=== PATIENT | male | born 1970 | race Caucasian/White ===

== ENCOUNTER → 2017-12-29 09:51 | Outpatient (CLI) | payer OTHER, SELFPAY ==
[2017-12-29 12:33] LABS: Absolute Lymphocyte Count 1.46 X10^3/ul (0.83-4.51); Absolute Neutrophil Count 1.7 X10^3/uL (2.0-7.7); Basophil# 0.05 X10^3/uL; Basophil% 1.3 % (0-1); Eosinophil# 0.08 X10^3/uL; Eosinophils% 2.1 % (0-5); Hematocrit 42.7 % (40-54); Hemoglobin 15.4 g/dl (13.0-16.5); Lymphocyte # 1.46 X10^3/ul (4.0); Mean Corp Hgb Conc 36.1 g/gl (32-36); Mean Corpuscular Hgb 33.8 pg (27.0-32.0); Mean Corpuscular Volume 93.6 fL (80-94); Mean Platelet Vol. 10.2 fl (6.2-12.0); Monocyte# 0.56 X10^3/uL; Monocyte% 14.6 % (0-10); Neutrophil # 1.68 X10^3/uL (2.7-7.7); Neutrophil % 43.7 % (47-70); Platelet Count 149 K/mm3 (150-450); RBC Distribution Width CV 11.5 % (11.6-14.6); RBC Distribution Width SD 38.9 fl (35.1-43.9); Red Blood Count 4.56 M/mm3 (4.6-6.2); White Blood Count 3.8 K/mm3 (4.4-11.0)
[2017-12-29 12:38] LABS: POSITIVE COUNT NO; POSITIVE DIFFERENTIAL NO; POSITIVE MORPHOLOGY NO
[2017-12-29 12:56] LABS: Hemoglobin A1c 7.2 % (4.2-6.3)
[2017-12-29 13:09] LABS: ALB/GLOB Ratio 0.7 RATIO (0.9-2.4); AST(SGOT) 132 U/L (15-37); Alanine Aminotransfer ALT/SGPT 156 U/L (16-61); Albumin, Serum 3.6 g/dL (3.2-5.0); Alkaline Phosphatase 79 U/L (45-117); Anion Gap 10 (5-15); BUN 8 mg/dL (7-18); BUN/Creat Ratio 9.5 RATIO (10-20); Calcium,Total 8.2 mg/dL (8.5-10.1); Chloride 91 mmol/L (98-107); Cholesterol 245 mg/dL (200); Creatinine, Serum 0.84 mg/dL (0.70-1.30); EST Glomerular Filtration Rate 102 mL/min (>60); Est Glom Filt Rate - Afr Amer 124 mL/min (>60); Globulin 5.1 g/dL (2.2-4.2); Glucose 196 mg/dL (74-106); High Density Lipoprotein 36 mg/dL; Potassium 3.5 mmol/L (3.5-5.1); Protein, Total 8.7 g/dL (6.4-8.2); Sodium Level 129 mmol/L (136-145); Triglycerides 427 mg/dL
== END ==
PROVIDERS: Family Provider Family Medicine; PCP Family Medicine; Visit Provider Family Medicine
DX: Z00.01 Encounter for general adult medical examination with abnormal findings (principal); K75.9 Inflammatory liver disease, unspecified; I10 Essential (primary) hypertension; R73.9 Hyperglycemia, unspecified
CPT/HCPCS: 36415; 80053; 80061; 83036; 85025

== ENCOUNTER → 2019-12-07 | Outpatient (CLI) | payer OTHER, SELFPAY ==
[2019-12-07 12:00] LABS: Absolute Lymphocyte Count 1.39 X10^3/uL (0.83-4.51); Absolute Neutrophil Count 2.6 X10^3/uL (2.0-7.7); Basophil# 0.06 X10^3/uL; Basophil% 1.3 % (0-1); Eosinophil# 0.06 X10^3/uL; Eosinophils% 1.3 % (0-5); Hematocrit 47.6 % (40-54); Hemoglobin 15.9 g/dL (13.0-16.5); Lymphocyte # 1.39 X10^3/ul (4.0); Mean Corp Hgb Conc 33.4 g/dL (32-36); Mean Corpuscular Hgb 31.4 pg (27.0-32.0); Mean Corpuscular Volume 93.9 fL (80-94); Mean Platelet Vol. 10.4 fl (6.2-12.0); Monocyte# 0.66 X10^3/uL; Monocyte% 13.8 % (0-10); NRBC Flagged by Analyzer 0 % (0-5); Neutrophil # 2.61 X10^3/uL (2.7-7.7); Neutrophil % 54.4 % (47-70); Platelet Count 122 K/mm3 (150-450); RBC Distribution Width CV 11.9 % (11.6-14.6); RBC Distribution Width SD 40.6 fl (35.1-43.9); Red Blood Count 5.07 M/mm3 (4.6-6.2); White Blood Count 4.8 K/mm3 (4.4-11.0)
[2019-12-07 12:01] LABS: International Normalized Ratio 1.3; Prothrombin Time (Protime)PT. 15.9 SECONDS (11.7-14.9)
[2019-12-07 12:15] LABS: Hemoglobin A1c 8.5 % (4.2-6.3)
[2019-12-07 12:24] LABS: ALB/GLOB Ratio 0.6 RATIO (0.9-2.4); AST(SGOT) 69 U/L (15-37); Alanine Aminotransfer ALT/SGPT 114 U/L (16-61); Albumin, Serum 3.6 g/dL (3.2-5.0); Alkaline Phosphatase 90 U/L (45-117); Anion Gap 8 (5-15); BUN 11 mg/dL (7-18); BUN/Creat Ratio 11.4 RATIO (10-20); Calcium,Total 9.2 mg/dL (8.5-10.1); Chloride 94 mmol/L (98-107); Cholesterol 259 mg/dL (200); Creatinine, Serum 0.96 mg/dL (0.70-1.30); EST Glomerular Filtration Rate 87 mL/min (>60); Est Glom Filt Rate - Afr Amer 105 mL/min (>60); Globulin 5.8 g/dL (2.2-4.2); Glucose 203 mg/dL (74-106); High Density Lipoprotein 53 mg/dL; Potassium 3.7 mmol/L (3.5-5.1); Protein, Total 9.4 g/dL (6.4-8.2); Sodium Level 130 mmol/L (136-145); Triglycerides 178 mg/dL; Very Low Density Lipoprotein 36 mg/dL (5-40)
[2019-12-07 12:32] LABS: Microalbumin:Creatinine Ratio 110.7 mg/g CRE (<30 mg/g CRE)
[2019-12-10 09:17] LABS: Vitamin B12 684 pg/mL (211-911)
== END | disposition home or self-care (01) ==
LOC: LAB.FUTURE 10:29
PROVIDERS: PCP Family Medicine; Referring Provider Family Medicine; Visit Provider Family Medicine
DX: Z00.00 Encounter for general adult medical examination without abnormal findings (principal); E11.9 Type 2 diabetes mellitus without complications; K75.9 Inflammatory liver disease, unspecified; F10.20 Alcohol dependence, uncomplicated
CPT/HCPCS: 36415; 80053; 80061; 82043; 82570; 82607; 82746; 83036; 85025; 85610

== ENCOUNTER 2022-05-01 22:10 | Inpatient (IN) | payer OTHER, SELFPAY ==
[2022-05-01 22:12] VITALS: BP 116/63; PULSE 92; RESP 16; TEMP 36.6; O2SAT 98; BMI 27.3
[2022-05-01] MEDS: 0.9% Normal Saline 1,000 ML 999 ML IV (23:07)
[2022-05-01] MEDS: Ondansetron 4 MG/2 ML Vial IV (23:07)
--- NOTE | 2022-05-01 23:07 | CT_ITS ---
EXAM: CT ABDOMEN AND PELVIS WITH INTRAVENOUS CONTRAST CLINICAL INDICATION: Hematemesis / ? Esophageal varices TECHNIQUE: Helically acquired images were obtained of the abdomen and pelvis with intravenous contrast. This CT exam was performed using one or more of the following dose reduction techniques: automated exposure control, adjustment of the mA and/or kV according to patient size, and/or use of iterative reconstruction technique. This report was created using [employer] report generation technology. CONTRAST: 100 cc of Isovue 300 IV. RADIATION DOSE: CTDIvol = 17.38 mGy, DLP = 1005.03 mGy-cm. COMPARISON: None. FINDINGS: LOWER THORAX: Unremarkable. Lung bases are clear. No cardiomegaly. No significant pericardial effusion. ABDOMEN: LIVER: Mildly nodular liver contour suggestive of cirrhosis. GALLBLADDER AND BILE DUCTS: Cholelithiasis. No gallbladder distention or wall edema. No intra- or extrahepatic biliary ductal dilation. PANCREAS: Unremarkable. No focal cystic or solid mass. SPLEEN: Unremarkable. Normal size without focal cystic or solid mass. ADRENALS: Unremarkable. No nodules. KIDNEYS AND URETERS: Unremarkable. Normal renal size and position. No hydronephrosis. STOMACH AND BOWEL: Numerous sigmoid diverticuli without diverticulitis. No stomach or bowel distention. PELVIS: APPENDIX: Normal appendix. BLADDER: Unremarkable. REPRODUCTIVE: Unremarkable as visualized. No mass. ABDOMEN and PELVIS: INTRAPERITONEAL SPACE: Slight ascites. No free air. BONES/JOINTS: Unremarkable. No suspicious lytic or blastic abnormality. SOFT TISSUES: Unremarkable. No discrete abdominal or pelvic wall hernia. VASCULATURE: There may be a few small varices in the gastrohepatic ligament. Abdominal aorta is non-dilated. LYMPH NODES: Borderline sized gastrohepatic and paraesophageal lymph nodes. CT/Abdomen/Pelvis W IV Cont ONLY IMPRESSION: 1. There may be a few small varices in the gastrohepatic ligament. No significant esophageal varices. 2. Mildly nodular liver contour suggestive of cirrhosis. 3. Cholelithiasis. 4. Slight ascites. 5. Numerous sigmoid diverticuli without diverticulitis. 6. Borderline sized gastrohepatic and paraesophageal lymph nodes. Electronically Signed: Aldair Begum MD at 0:33 EDT ,
--- NOTE | 2022-05-01 23:08 | EX.ED.DYSGE1 ---
HPI History of Present Illness Chief Complaint: Nausea/Vomiting Narrative Narrative: Patient is a 52-year-old male who reports a past medical history of hypertension. He also states he drinks 12 beers daily. He states today he was feeling perfectly normal and around 830 had a bout of vomiting. He states that it was bloody in nature. He states he takes a baby aspirin but otherwise denies any blood thinner use or history of bleeding disorder. He states roughly 2030 minutes later he had 2 more bouts of vomiting which also appear bloody in nature. He states just prior to coming to the ER he did have a loose stool which was dark in color. He denies any history of intestinal disorder or known esophageal varices. He denies any known sick contact. However with his bouts of vomiting and concern that it is bloody in nature presents for evaluation [facility] Medical History (Updated 05/02/22 @ 01:[address] Spike Morales DO) Alcohol abuse Diabetes mellitus, type 2 History of venous thromboembolism HTN (hypertension) Home Medications aspirin 81 mg tablet,delayed release 81 mg PO DAILY 05/01/22 [History Last Taken Unknown] metoprolol tartrate 50 mg tablet 50 tab PO BID 05/01/22 [History Last Taken Unknown] Allergy/AdvReac Type Severity Reaction Status Date / Time No Known Allergies Allergy Verified 05/01/22 22:14 Family History (Updated 05/02/22 @ 00:[address] Rody Zurita MD) Mother Cancer CLL Father Colon cancer Diagnosed age 49, passed ~ 10 years later. Surgical History (Updated 05/02/22 @ 00:[address] Rody Zurita MD) S/P tonsillectomy and adenoidectomy Social History (Updated 05/02/22 @ 00:[address] Rody Zurita MD) household members: none Smoking Status: Never smoker alcohol intake: current alcohol intake frequency: 3 or more drinks per day details: several years-decades intake, current 12 beers/day. substance use type: does not use ROS ROS ED Constitutional Constitutional ED: Denies chills or fever(s) ENT ENT ED: Denies sore throat Cardiovascular Cardiovascular: Denies chest pain or palpitations Respiratory/Chest Respiratory/Chest: Denies cough or dyspnea Gastrointestinal Gastrointestinal: Reports melena, nausea and vomiting; Denies abdominal pain or diarrhea Genitourinary Genitourinary ED: Denies dysuria Musculoskeletal Musculoskeletal: Denies myalgias Integumentary Denies rash Neurologic Neurologic: Denies headache(s) Hematologic/Lymphatic Hematologic/Lymphatic: Denies easy bleeding or easy bruising EXAM Physical Exam Const Vital Signs: 05/01/22 22:12 Temperature 97.8 F Temperature Source Temporal Pulse Rate 92 Respiratory Rate 16 Blood Pressure 116/63 Blood Pressure Mean 80 Pulse Ox 98 Oxygen Delivery Method Room Air Positive well nourished and well developed General Appearance ED: well developed HEENT Reports moist mucous membranes HEENT Narrative: No dried blood or active bleeding noted in the posterior pharynx Eyes PERRL and EOMs intact bilaterally Eyes Narrative: Slight scleral icterus noted Neck supple Neck Narrative: No crepitance palpated Resp normal respiratory effort and clear to auscultation bilaterally Cardio regular rate and regular rhythm Rate: other Other Details: Radial pulses are plus 2 out of 4 bilaterally are equal and symmetric GI normal to inspection, nondistended, normoactive bowel sounds, non-tender and non-distended GI Narrative: No voluntary guarding or rigidity no pulsatile mass or fluid wave Auscultation: normoactive bowel sounds Palpation: soft Narrative: Rectal exam shows no external fissure or hemorrhoid. Rectal tone is normal and stool is melanotic in color Extremity normal to inspection Neuro oriented x3 and CN's II-XII intact bilaterally Sensorium / Orientation: alert Psych mental status grossly normal Skin no rashes or lesions noted General Skin Exam: Negative for jaundice MDM MDM MDM Narrative Medical decision making narrative: Patient presented to the ER with stable vitals. He reported that he had hematemesis today as well as some dark discolored stool. He denies any history of this or bleeding disorder but he does drink reportedly 12 beers a day which increases risk for possible esophageal varices or alcohol gastritis. Basic blood work was ordered and it shows a hemoglobin of 7.3. The previous value have from 2 years ago was normal at approximately 16. The patient's stool is melanotic in color but the lab reported it was negative for blood. However based on his physical exam and laboratory derangements I feel this is a false negative. I do feel patient is most likely still having upper GI bleeding. Therefore he was given a Protonix bolus and as well as a Protonix drip. With concern for esophageal varices based on his alcohol use and the reported hematemesis he was also started on octreotide. At this time he is hemodynamically stable but with history and exam concerning for active GI bleed he will be given a unit of blood and kept in the hospital for further evaluation. Lab Data Attestation: I reviewed the patient's lab results. Labs: Laboratory Results - last 24 hr 05/01/22 05/01/22 05/01/22 23:10 23:10 23:10 WBC 3.4 L RBC 3.20 L Hgb 7.3 L Hct 24.9 L MCV 77.8 L MCH 22.8 L MCHC 29.3 L RDW Std Deviation 46.7 H RDW Coeff of Harlan 16.2 H Plt Count 115 L MPV 10.0 Immature Gran % (Auto) 0.300 Neut % (Auto) 59.1 Lymph % (Auto) 25.1 [place] % (Auto) 14.3 H Eos % (Auto) 0.3 Baso % (Auto) 0.9 Absolute Neuts (auto) 2.0 Absolute Lymphs (auto) 0.84 Nucleated RBC % 0 PT 17.0 H INR 1.4 APTT 31.5 Sodium 132 L Potassium 4.4 Chloride 97 L Carbon Dioxide 27.0 Anion Gap 8 BUN 16 Creatinine 0.80 Estim Creat Clear Calc 98.69 Est GFR (MDRD) Af Amer 130 Est GFR (MDRD) Non-Af 107 BUN/Creatinine Ratio 20.0 Glucose 264 H Lactic Acid Calcium 8.2 L Phosphorus Magnesium Total Bilirubin 0.70 Direct Bilirubin 0.30 AST 54 H ALT 51 Alkaline Phosphatase 68 Total Protein 7.9 Albumin 2.8 L Globulin 5.1 H Lipase 164 Ethyl Alcohol Blood Type Antibody Screen 05/01/22 05/01/22 05/01/22 23:10 23:10 23:10 WBC RBC Hgb Hct MCV MCH MCHC RDW Std Deviation RDW Coeff of Harlan Plt Count MPV Immature Gran % (Auto) Neut % (Auto) Lymph % (Auto) [place] % (Auto) Eos % (Auto) Baso % (Auto) Absolute Neuts (auto) Absolute Lymphs (auto) Nucleated RBC % PT INR APTT Sodium Potassium Chloride Carbon Dioxide Anion Gap BUN Creatinine Estim Creat Clear Calc Est GFR (MDRD) Af Amer Est GFR (MDRD) Non-Af BUN/Creatinine Ratio Glucose Lactic Acid 3.1 H* Calcium Phosphorus 2.4 L Magnesium 1.6 Total Bilirubin Direct Bilirubin AST ALT Alkaline Phosphatase Total Protein Albumin Globulin Lipase Ethyl Alcohol 13.0 Blood Type Antibody Screen 05/01/22 23:35 WBC RBC Hgb Hct MCV MCH MCHC RDW Std Deviation RDW Coeff of Harlan Plt Count MPV Immature Gran % (Auto) Neut % (Auto) Lymph % (Auto) [place] % (Auto) Eos % (Auto) Baso % (Auto) Absolute Neuts (auto) Absolute Lymphs (auto) Nucleated RBC % PT INR APTT Sodium Potassium Chloride Carbon Dioxide Anion Gap BUN Creatinine Estim Creat Clear Calc Est GFR (MDRD) Af Amer Est GFR (MDRD) Non-Af BUN/Creatinine Ratio Glucose Lactic Acid Calcium Phosphorus Magnesium Total Bilirubin Direct Bilirubin AST ALT Alkaline Phosphatase Total Protein Albumin Globulin Lipase Ethyl Alcohol Blood Type A NEGATIVE Antibody Screen NEGATIVE Radiography Diagnostic Testing: Clinical Impression(s) from Imaging Studies Abdomen/Pelvis CT 05/01/22 23:07 IMPRESSION: 1. There may be a few small varices in the gastrohepatic ligament. No significant esophageal varices. 2. Mildly nodular liver contour suggestive of cirrhosis. 3. Cholelithiasis. 4. Slight ascites. 5. Numerous sigmoid diverticuli without diverticulitis. 6. Borderline sized gastrohepatic and paraesophageal lymph nodes. Electronically Signed: Aldair Begum MD at 0:33 EDT , Critical Care Time Critical Care Time: Yes Critical care time (excluding procedures): - (31 minutes) Discharge Plan Dx/Rx/DC Orders Clinical Impression: Acute GI bleeding, Acute blood loss anemia Disposition Disposition: Acute Care Hospital [facility] Discharge Date/Time: 05/02/22 01:40
[2022-05-01 23:16] LABS: Absolute Lymphocyte Count 0.84 X10^3/uL (0.83-4.51); Basophil# 0.03 X10^3/uL; Basophil% 0.9 % (0-1); Eosinophil# 0.01 X10^3/uL; Eosinophils% 0.3 % (0-5); Hematocrit 24.9 % (40-54); Hemoglobin 7.3 g/dL (13.0-16.5); Lymphocyte # 0.84 X10^3/ul (0.83-4.51); Lymphocyte % 25.1 % (19-41); Mean Corp Hgb Conc 29.3 g/dL (32-36); Mean Corpuscular Hgb 22.8 pg (27.0-32.0); Mean Corpuscular Volume 77.8 fL (80-94); Monocyte# 0.48 X10^3/uL; Monocyte% 14.3 % (0-10); NRBC Flagged by Analyzer 0 % (0-5); Neutrophil # 1.98 X10^3/uL (2.7-7.7); Neutrophil % 59.1 % (47-70); Platelet Count 115 K/mm3 (150-450); RBC Distribution Width CV 16.2 % (11.6-14.6); RBC Distribution Width SD 46.7 fl (35.1-43.9); White Blood Count 3.4 K/mm3 (4.4-11.0)
[2022-05-01 23:25] LABS: International Normalized Ratio 1.4; Partial Thromboplast Time 31.5 Seconds (24.1-36.2)
--- NOTE | 2022-05-01 23:30 | PCM.CONS.GEN ---
Assessment & Plan Assessment/Plan (1) Acute blood loss anemia: PLAN: Acute gross anemia possibly secondary to esophageal variceal bleed, gastric variceal bleed, Isaura-Gaspar tear, peptic ulcer disease from NSAIDs, portal hypertension. He should undergo an upper endoscopy to evaluate his upper GI tract. Continue current medical therapy. He was explained alternatives, risk, benefits including not withstanding bleeding, infection, sepsis, perforation, need for additional . He will be an ASA of 3. (2) Cirrhosis: PLAN: Recommended checking ammonia level, LDH, alpha-fetoprotein. After the procedure he would need to be started on beta-lori therapy, Xifaxan, lactulose. (3) Iron deficiency anemia: PLAN: I am suspecting that he has a slow GI bleed in the setting of an acute GI bleed due to his microcytic anemia. He should have a colonoscopy in the future to rule out neoplasia or bleeding polyps in the colon. He should also get a capsule endoscopy to evaluate his small bowel for duodenal, jejunal or ileal varices. HPI Consult Data Date of Consult: 05/02/22 HPI Narrative Reason for Consultation: GI bleeding HPI Narrative: DAVID THOMPSON, is a 52-year-old male who reports a past medical history of hypertension, hyperlipidemia and type 2 diabetes.? He also states he drinks 12 beers daily.? He states today he was feeling perfectly normal and around 830 had a bout of vomiting.? He states that it was bloody in nature.? He states he takes a baby aspirin but otherwise denies any blood thinner use or history of bleeding disorder.? He states roughly 2030 minutes later he had 2 more bouts of vomiting which also appear bloody in nature.? He states just prior to coming to the ER he did have a loose stool which was dark in color.? He denies any history of intestinal disorder or known esophageal varices.? He denies any known sick contact.? However with his bouts of vomiting and concern that it is bloody in nature presents for evaluation. He had a CT scan of the abdomen pelvis that did show esophageal varices, signs of portal hypertension with lymphadenopathy. There also was some mild ascites. He denies any history of jaundice, alcoholic hepatitis, alcoholic pancreatitis, weight loss or weight gain, lower extremity swelling, encephalopathy. He was started on PPI drip, ceftriaxone and octreotide. His last hemoglobin was 6.4. He is currently getting 2 units of packed red blood cells. [facility] Medical History (Updated 05/02/22 @ 08:[address] Song Friend, DO) Alcohol abuse Diabetes mellitus, type 2 History of venous thromboembolism HTN (hypertension) Home Medications aspirin 81 mg tablet,delayed release 81 mg PO DAILY 05/01/22 [History Last Taken Unknown] metoprolol tartrate 50 mg tablet 50 tab PO BID 05/01/22 [History Last Taken Unknown] Allergy/AdvReac Type Severity Reaction Status Date / Time No Known Allergies Allergy Verified 05/01/22 22:14 Family History (Updated 05/02/22 @ 00:[address] Rody Zurita MD) Mother Cancer CLL Father Colon cancer Diagnosed age 49, passed ~ 10 years later. Surgical History (Updated 05/02/22 @ 00:[address] Rody Zurita MD) S/P tonsillectomy and adenoidectomy Social History (Updated 05/02/22 @ 00:[address] Rody Zurita MD) household members: none Smoking Status: Never smoker alcohol intake: current alcohol intake frequency: 3 or more drinks per day details: several years-decades intake, current 12 beers/day. substance use type: does not use ROS ROS Narrative Admission Review of Systems: CONSTITUTIONAL: No weight loss, fever, chills, + weakness or fatigue. HEENT: Eyes: No visual loss, blurred vision, double vision or yellow sclerae. Ears, Nose, Throat: No hearing loss, sneezing, congestion, runny nose or sore throat. SKIN: No rash or itching, lesions, wounds. CARDIOVASCULAR: No chest pain, chest pressure or chest discomfort, palpitations, edema, orthopnea, syncopal events. RESPIRATORY: No shortness of breath, cough or sputum, wheezing, hemoptysis. GASTROINTESTINAL: + anorexia, nausea, vomiting, diarrhea, melanotic stools, hematemesis, No abdominal pain, BRBPR. GENITOURINARY: No dysuria, frequency, urgency or retention. NEUROLOGICAL: No headache, dizziness, syncope, paralysis, ataxia, numbness or tingling in the extremities, focal weakness, change in bowel or bladder control, seizure. MUSCULOSKELETAL: No muscle, back pain, joint pain or stiffness. HEMATOLOGIC: + anemia, bleeding or bruising. LYMPHATICS: No enlarged nodes. No history of splenectomy. PSYCHIATRIC: No history of depression or anxiety. ENDOCRINOLOGIC: No reports of sweating, cold or heat intolerance. No polyuria or polydipsia. ALLERGIES: No history of asthma, hives, eczema or rhinitis. Physical Exam Narrative Physical Examination: General: Awake, alert, oriented x 3 and cooperative, laying in the ED bed, fatigued but no acute distress. Skin: Mildly pale color, normal turgor, no icterus, no cyanosis. HEENT: AT/NC, EOMI, PERRLA, mildly dry MM, no carotid bruits or JVD noted. Lungs: Mildly diminished, greater bases, appropriate effort, no rales, ronchi or wheezing. Heart: Mildly tachycardic with regular rhythm; no gallop, rub audible. Abdomen: Soft, NTTP, ND, hyperactive BS, positive HM. Extremities: No cyanosis, clubbing, or edema. Neurological: Patient awake, alert, oriented as noted, cognitive function intact; pupils equally reactive to light and accommodation, cranial nerves II-XII grossly normal, moving all 4 extremities, no focal deficits, strength mildly global decreased, less severe appear then labs and history would expect. Psychiatric: Affect appears fatigued otherwise normal, no acute evidence of depressive or anxiety feelings. Lab / Micro Data Result Diagrams: 05/02/22 03:24 05/02/22 03:24 Labs: Laboratory Results - last 24 hr 05/01/22 23:10: WBC 3.4 L, RBC 3.20 L, Hgb 7.3 L, Hct 24.9 L, MCV 77.8 L, MCH 22.8 L, MCHC 29.3 L, RDW Std Deviation 46.7 H, RDW Coeff of Harlan 16.2 H, Plt Count 115 L, MPV 10.0, Immature Gran % (Auto) 0.300, Neut % (Auto) 59.1, Lymph % (Auto) 25.1, [place] % (Auto) 14.3 H, Eos % (Auto) 0.3, Baso % (Auto) 0.9, Absolute Neuts (auto) 2.0, Absolute Lymphs (auto) 0.84, Nucleated RBC % 0 05/01/22 23:10: PT 17.0 H, INR 1.4, APTT 31.5 05/01/22 23:10: Sodium 132 L, Potassium 4.4, Chloride 97 L, Carbon Dioxide 27.0, Anion Gap 8, BUN 16, Creatinine 0.80, Estim Creat Clear Calc 98.69, Est GFR (MDRD) Af Amer 130, Est GFR (MDRD) Non-Af 107, BUN/Creatinine Ratio 20.0, Glucose 264 H, Calcium 8.2 L, Total Bilirubin 0.70, Direct Bilirubin 0.30, AST 54 H, ALT 51, Alkaline Phosphatase 68, Total Protein 7.9, Albumin 2.8 L, Globulin 5.1 H, Lipase 164 05/01/22 23:10: Ethyl Alcohol 13.0 05/01/22 23:10: Lactic Acid 3.1 H* 05/01/22 23:10: Phosphorus 2.4 L, Magnesium 1.6 05/01/22 23:35: Blood Type A NEGATIVE, Antibody Screen NEGATIVE 05/01/22 23:35: Crossmatch See Detail 05/02/22 03:24: WBC 4.5, RBC 3.00 L, Hgb 6.7 L, Hct 23.5 L, MCV 78.3 L, MCH 22.3 L, MCHC 28.5 L, RDW Std Deviation 47.3 H, RDW Coeff of Harlan 16.4 H, Plt Count 101 L, MPV 10.3, Immature Gran % (Auto) 0.700, Neut % (Auto) 58.9, Lymph % (Auto) 29.8, [place] % (Auto) 10.2 H, Eos % (Auto) 0.0, Baso % (Auto) 0.4, Absolute Neuts (auto) 2.7, Absolute Lymphs (auto) 1.35, Nucleated RBC % 0 05/02/22 03:24: Sodium 131 L, Potassium 5.0, Chloride 97 L, Carbon Dioxide 24.0, Anion Gap 10, BUN 15, Creatinine 0.69 L, Estim Creat Clear Calc 114.42, Est GFR (MDRD) Af Amer 153, Est GFR (MDRD) Non-Af 127, BUN/Creatinine Ratio 21.7 H, Glucose 274 H, Calcium 7.6 L, Total Bilirubin 0.80, AST 46 H, ALT 44, Alkaline Phosphatase 60, Total Protein 7.3, Albumin 2.7 L, Globulin 4.6 H, Albumin/Globulin Ratio 0.6 L 05/02/22 03:24: Lactic Acid 1.3 05/02/22 05:21: POC Glucose 275 H Micro: Microbiology 05/01/22 23:30 Stool Stool Occult Blood ([facility]) - Final Radiology Impression Abdomen/Pelvis CT 05/01/22 23:07 IMPRESSION: 1. There may be a few small varices in the gastrohepatic ligament. No significant esophageal varices. 2. Mildly nodular liver contour suggestive of cirrhosis. 3. Cholelithiasis. 4. Slight ascites. 5. Numerous sigmoid diverticuli without diverticulitis. 6. Borderline sized gastrohepatic and paraesophageal lymph nodes. Electronically Signed: Aldair Begum MD at 0:33 EDT , Charges/Coding Visit Charges Inpatient E&M: 79808 Init Hosp L3
[2022-05-01 23:34] LABS: AST(SGOT) 54 U/L (15-37); Alanine Aminotransfer ALT/SGPT 51 U/L (16-61); Albumin, Serum 2.8 g/dL (3.2-5.0); Alkaline Phosphatase 68 U/L (45-117); Anion Gap 8 (5-15); BUN 16 mg/dL (7-18); Calcium,Total 8.2 mg/dL (8.5-10.1); Chloride 97 mmol/L (98-107); EST Glomerular Filtration Rate 107 mL/min (>60); Est Glom Filt Rate - Afr Amer 130 mL/min (>60); Estimated Creatinine Clearance 98.69 ml/min; Globulin 5.1 g/dL (2.2-4.2); Glucose 264 mg/dL (74-106); Lipase 164 U/L (73-393); Potassium 4.4 mmol/L (3.5-5.1); Protein, Total 7.9 g/dL (6.4-8.2); Sodium Level 132 mmol/L (136-145)
--- NOTE | 2022-05-01 23:58 | PCM.HP.STD ---
HPI - General General Date of Admission: 05/01/22 Date of Service: 05/01/22 Chief Complaint: N/V, hematemesis, melanotic stools. HPI Narrative The patient is a 52 y/o M w/ PMHx: Diabetes mellitus type II, HTN, EtOH Abuse (12 beers daily, notes no withdrawal symptoms if he drinks less) who presents to the [facility] ED on 05/01/22 with history of onset at approximately 8:30 AM sudden nausea with several bouts of emesis reportedly hematemesis with through the day 3 episodes of dark black tarry melanotic appearing stools with no abdominal cramping or any pain or any epigastric discomfort with no recent fevers or chills or increased alcohol intake however given appearance of his emesis in his stools prompted ED evaluation. He does report being fatigued but no lightheadedness or dizziness. Work-up in the ED included T97.8, heart rate 92, BP 116/63, respiratory rate 16, 98% on room air, CBC with WC 3.4, hemoglobin 7.3 with MCV 77.8, platelet 115 without marked shift, coags with PT 17, INR 1.4, PTT 31.5, CMP with sodium 132, chloride 97, glucose 264, lactic acid 3.1, hepatic profile not marked appearing aside AST mildly elevated 54, lipase 164, ethyl alcohol 13, type and cross for 1 unit per ED physician, despite recent melanotic appearing stools guaiac was negative, CT abdomen and pelvis with potentially few small varices in the gastropathic ligament with no significant esophageal varices, mildly nodular liver contour suggestive of cirrhosis, cholelithiasis, slight ascites, numerous sigmoid diverticuli without diverticulitis, borderline sized gastrohepatic and paraesophageal lymph nodes. Discussed case at length with the ED physician and decision to administer 1 unit PRBC ordered by ED physician, initiate octreotide as well as Protonix drip and will initiate also upon admission IV Rocephin therapy with plan GI consultation. [facility] Medical History (Updated 05/02/22 @ 00:[address] Rody Zurita MD) Alcohol abuse Diabetes mellitus, type 2 History of venous thromboembolism HTN (hypertension) Home Medications aspirin 81 mg tablet,delayed release 81 mg PO DAILY 05/01/22 [History Last Taken Unknown] metoprolol tartrate 50 mg tablet 50 tab PO BID 05/01/22 [History Last Taken Unknown] Allergy/AdvReac Type Severity Reaction Status Date / Time No Known Allergies Allergy Verified 05/01/22 22:14 Family History (Updated 05/02/22 @ 00:[address] Rody Zurita MD) Mother Cancer CLL Father Colon cancer Diagnosed age 49, passed ~ 10 years later. Surgical History (Updated 05/02/22 @ 00:[address] Rody Zurita MD) S/P tonsillectomy and adenoidectomy Social History (Updated 05/02/22 @ 00:[address] Rody Zurita MD) household members: none Smoking Status: Never smoker alcohol intake: current alcohol intake frequency: 3 or more drinks per day details: several years-decades intake, current 12 beers/day. substance use type: does not use ROS ROS Narrative Admission Review of Systems: CONSTITUTIONAL: No weight loss, fever, chills, + weakness or fatigue. HEENT: Eyes: No visual loss, blurred vision, double vision or yellow sclerae. Ears, Nose, Throat: No hearing loss, sneezing, congestion, runny nose or sore throat. SKIN: No rash or itching, lesions, wounds. CARDIOVASCULAR: No chest pain, chest pressure or chest discomfort, palpitations, edema, orthopnea, syncopal events. RESPIRATORY: No shortness of breath, cough or sputum, wheezing, hemoptysis. GASTROINTESTINAL: + anorexia, nausea, vomiting, diarrhea, melanotic stools, hematemesis, No abdominal pain, BRBPR. GENITOURINARY: No dysuria, frequency, urgency or retention. NEUROLOGICAL: No headache, dizziness, syncope, paralysis, ataxia, numbness or tingling in the extremities, focal weakness, change in bowel or bladder control, seizure. MUSCULOSKELETAL: No muscle, back pain, joint pain or stiffness. HEMATOLOGIC: + anemia, bleeding or bruising. LYMPHATICS: No enlarged nodes. No history of splenectomy. PSYCHIATRIC: No history of depression or anxiety. ENDOCRINOLOGIC: No reports of sweating, cold or heat intolerance. No polyuria or polydipsia. ALLERGIES: No history of asthma, hives, eczema or rhinitis. Vital Signs Vital Signs Vital Signs: 05/01/22 22:12 Temperature 97.8 F Temperature Source Temporal Pulse Rate 92 Respiratory Rate 16 Blood Pressure 116/63 Blood Pressure Mean 80 Pulse Ox 98 Oxygen Delivery Method Room Air Weight Weight: 175 lb Body Mass Index (BMI) 27.3 Physical Exam Narrative Physical Examination: General: Awake, alert, oriented x 3 and cooperative, laying in the ED bed, fatigued but no acute distress. Skin: Mildly pale color, normal turgor, no icterus, no cyanosis. HEENT: AT/NC, EOMI, PERRLA, mildly dry MM, no carotid bruits or JVD noted. Lungs: Mildly diminished, greater bases, appropriate effort, no rales, ronchi or wheezing. Heart: Mildly tachycardic with regular rhythm; no gallop, rub audible. Abdomen: Soft, NTTP, ND, hyperactive BS, positive HM. Extremities: No cyanosis, clubbing, or edema. Neurological: Patient awake, alert, oriented as noted, cognitive function intact; pupils equally reactive to light and accommodation, cranial nerves II-XII grossly normal, moving all 4 extremities, no focal deficits, strength mildly global decreased, less severe appear then labs and history would expect. Psychiatric: Affect appears fatigued otherwise normal, no acute evidence of depressive or anxiety feelings. Results Lab / Micro Data Result Diagrams: 05/01/22 23:10 05/01/22 23:10 Labs: Laboratory Results - last 24 hr 05/01/22 23:10: WBC 3.4 L, RBC 3.20 L, Hgb 7.3 L, Hct 24.9 L, MCV 77.8 L, MCH 22.8 L, MCHC 29.3 L, RDW Std Deviation 46.7 H, RDW Coeff of Harlan 16.2 H, Plt Count 115 L, MPV 10.0, Immature Gran % (Auto) 0.300, Neut % (Auto) 59.1, Lymph % (Auto) 25.1, Alfalfa % (Auto) 14.3 H, Eos % (Auto) 0.3, Baso % (Auto) 0.9, Absolute Neuts (auto) 2.0, Absolute Lymphs (auto) 0.84, Nucleated RBC % 0 05/01/22 23:10: PT 17.0 H, INR 1.4, APTT 31.5 05/01/22 23:10: Sodium 132 L, Potassium 4.4, Chloride 97 L, Carbon Dioxide 27.0, Anion Gap 8, BUN 16, Creatinine 0.80, Estim Creat Clear Calc 98.69, Est GFR (MDRD) Af Amer 130, Est GFR (MDRD) Non-Af 107, BUN/Creatinine Ratio 20.0, Glucose 264 H, Calcium 8.2 L, Total Bilirubin 0.70, Direct Bilirubin 0.30, AST 54 H, ALT 51, Alkaline Phosphatase 68, Total Protein 7.9, Albumin 2.8 L, Globulin 5.1 H, Lipase 164 05/01/22 23:10: Ethyl Alcohol 13.0 Micro: Microbiology 05/01/22 23:30 Stool Stool Occult Blood (MYRON) - Final Assessment & Plan Assessment/Plan (1) Acute blood loss anemia: (2) Acute GI bleeding: PLAN: Plan The patient is a 52 y/o M w/ PMHx: Diabetes mellitus type II, HTN, EtOH Abuse (12 beers daily, notes no withdrawal symptoms if he drinks less) who presents to the [facility] ED on 05/01/22 with history of onset at approximately 8:30 AM sudden nausea with several bouts of emesis reportedly hematemesis with through the day 3 episodes of dark black tarry melanotic appearing stools with no abdominal cramping or any pain or any epigastric discomfort with no recent fevers or chills or increased alcohol intake however given appearance of his emesis in his stools prompted ED evaluation. #1. Acute GI Bleed w/ resultant Acute Blood Loss Anemia complicated by evidence of small varices in the gastropathic ligament with alcohol abuse as noted and evidence of cirrhotic disease: Patient with hematemesis and melanotic stools, CT has noted with evidence of small varices although not fortunately esophageal, will admit to PCU as a stepdown to be cautious, continue with plan 1 unit PRBC administration, cycle hemoglobins, maintain on IV PPI, maintain on octreotide. Given patient is cirrhotic will place on prophylaxis w/ rocephin. GI consulted and evaluation pending. Maintain NPO status with continued IVFs. #2. EtOH Abuse: Patient notes routine consumption of 12 beers per day. Will maintain on CIWA protocol, MVI, thiamine and folic acid. Patient is interested in sobriety and did discuss several options. He is interested following evaluation of #1 and stabilization potential initiation on phenobarbital taper in the program. Magnesium and phosphorus levels pending. #3. Diabetes mellitus type II: Hold oral home regimen, n.p.o. status, every 6 hour accu checks w/ ISS. #4. Hypertension: Holding home regimen given low normal BP to be cautious given acute presentation number 1, add back once appropriate. #5. GERD: We will maintain on IV PPI is noted. #6. DVT prophylaxis: SCDs, holding chemoprophylaxis given acute presentation. #7. CODE status: Patient does not have healthcare power of trademark attorney nor living will in place. Patient's brother is present for the evaluation and would be his decision-maker if anything should happen. Discussed CODE status at length including difference between FULL code, DNR-CCA and DNR-CC status. Following discussions about the differences in these status, requested Full Code. Advanced Care Planning Face to Face Time: 16 minutes. Charges/Coding Visit Charges Inpatient E&M: 15402 Init Hosp L3 Procedures Hospitalists Procedures: 90598 Advncd Care Plan 30 Min
[2022-05-02] VITALS (32 sets, daily range): BP systolic 72–167; BP diastolic 41–97; PULSE 85–110; RESP 12–106; TEMP 36.4–37.5; O2SAT 92–98; BMI 28.3
[2022-05-02 00:30] LABS: Magnesium 1.6 mg/dL (1.6-2.6); Phosphorus 2.4 mg/dL (2.5-4.9)
[2022-05-02 00:37] LABS: Lactic Acid 3.1 mmol/L (0.4-1.9)
[2022-05-02] MEDS: Ceftriaxone 1 GM/50 ML BAG IV ×2 (02:03→22:04)
[2022-05-02] MEDS: 0.9% Normal Saline 1,000 ML 100 ML IV (02:03)
[2022-05-02 03:13] LABS: Reflex Lactate? Y
[2022-05-02 03:42] LABS: Absolute Lymphocyte Count 1.35 X10^3/uL (0.83-4.51); Absolute Neutrophil Count 2.7 X10^3/uL (2.0-7.7); Basophil# 0.02 X10^3/uL; Basophil% 0.4 % (0-1); Hematocrit 23.5 % (40-54); Hemoglobin 6.7 g/dL (13.0-16.5); Lymphocyte # 1.35 X10^3/ul (0.83-4.51); Lymphocyte % 29.8 % (19-41); Mean Corp Hgb Conc 28.5 g/dL (32-36); Mean Corpuscular Hgb 22.3 pg (27.0-32.0); Mean Corpuscular Volume 78.3 fL (80-94); Mean Platelet Vol. 10.3 fl (6.2-12.0); Monocyte# 0.46 X10^3/uL; Monocyte% 10.2 % (0-10); NRBC Flagged by Analyzer 0 % (0-5); Neutrophil # 2.67 X10^3/uL (2.7-7.7); Neutrophil % 58.9 % (47-70); Platelet Count 101 K/mm3 (150-450); RBC Distribution Width CV 16.4 % (11.6-14.6); RBC Distribution Width SD 47.3 fl (35.1-43.9); White Blood Count 4.5 K/mm3 (4.4-11.0)
[2022-05-02 04:15] LABS: Lactic Acid 1.3 mmol/L (0.4-1.9)
[2022-05-02 04:18] LABS: ALB/GLOB Ratio 0.6 RATIO (0.9-2.4); AST(SGOT) 46 U/L (15-37); Alanine Aminotransfer ALT/SGPT 44 U/L (16-61); Albumin, Serum 2.7 g/dL (3.2-5.0); Alkaline Phosphatase 60 U/L (45-117); Anion Gap 10 (5-15); BUN 15 mg/dL (7-18); BUN/Creat Ratio 21.7 RATIO (10-20); Calcium,Total 7.6 mg/dL (8.5-10.1); Chloride 97 mmol/L (98-107); Creatinine, Serum 0.69 mg/dL (0.70-1.30); EST Glomerular Filtration Rate 127 mL/min (>60); Est Glom Filt Rate - Afr Amer 153 mL/min (>60); Estimated Creatinine Clearance 114.42 ml/min; Globulin 4.6 g/dL (2.2-4.2); Glucose 274 mg/dL (74-106); Protein, Total 7.3 g/dL (6.4-8.2); Sodium Level 131 mmol/L (136-145)
[2022-05-02 05:41] LABS: Bedside Glucose 275 mg/dL (74-106)
[2022-05-02] MEDS: Thiamine Hydrochloride 100 MG Tablet PO (09:25)
[2022-05-02] MEDS: Folic Acid 1 MG Tablet PO (09:25)
[2022-05-02] MEDS: Multivitamins,Therapeutic Tablet 1 TABLET PO (09:25)
--- NOTE | 2022-05-02 09:47 | PN.HOSP_ITS ---
Subjective Subjective Doing well, no issues overnight. Still receiving a blood transfusion, hemoglobin this morning was 6.7 Objective Data Objective Data Vital Signs: Vital Signs Temp Pulse Resp BP Pulse Ox O2 Del Method 97.6 F L 93 23 H 159/95 H 94 Room Air 05/02/22 09:18 05/02/22 09:18 05/02/22 09:18 05/02/22 09:18 05/02/22 09:18 05/02/22 09:18 Oxygen Delivery Method Room Air Weight: 180 lb 12.465 oz Body Mass Index (BMI) 28.3 Intake & Output: Intake and Output for Last 24 Hours 05/01/22 05/02/22 05/03/22 03:59 03:59 03:59 Intake Total 1136 / 1136 1230 / 1230 Balance 1136 / 1136 1230 / 1230 Lab / Micro Data Result Diagrams: 05/02/22 03:24 05/02/22 03:24 Labs: Laboratory Results - last 24 hr 05/01/22 23:10: WBC 3.4 L, RBC 3.20 L, Hgb 7.3 L, Hct 24.9 L, MCV 77.8 L, MCH 22.8 L, MCHC 29.3 L, RDW Std Deviation 46.7 H, RDW Coeff of Harlan 16.2 H, Plt Count 115 L, MPV 10.0, Immature Gran % (Auto) 0.300, Neut % (Auto) 59.1, Lymph % (Auto) 25.1, Martin % (Auto) 14.3 H, Eos % (Auto) 0.3, Baso % (Auto) 0.9, Absolute Neuts (auto) 2.0, Absolute Lymphs (auto) 0.84, Nucleated RBC % 0 05/01/22 23:10: PT 17.0 H, INR 1.4, APTT 31.5 05/01/22 23:10: Sodium 132 L, Potassium 4.4, Chloride 97 L, Carbon Dioxide 27.0, Anion Gap 8, BUN 16, Creatinine 0.80, Estim Creat Clear Calc 98.69, Est GFR (MDRD) Af Amer 130, Est GFR (MDRD) Non-Af 107, BUN/Creatinine Ratio 20.0, Glu cose 264 H, Calcium 8.2 L, Total Bilirubin 0.70, Direct Bilirubin 0.30, AST 54 H , ALT 51, Alkaline Phosphatase 68, Total Protein 7.9, Albumin 2.8 L, Globulin 5.1 H, Lipase 164 05/01/22 23:10: Ethyl Alcohol 13.0 05/01/22 23:10: Lactic Acid 3.1 H* 05/01/22 23:10: Phosphorus 2.4 L, Magnesium 1.6 05/01/22 23:35: Blood Type A NEGATIVE, Antibody Screen NEGATIVE 05/01/22 23:35: Crossmatch See Detail 05/02/22 03:24: WBC 4.5, RBC 3.00 L, Hgb 6.7 L, Hct 23.5 L, MCV 78.3 L, MCH 22.3 L, MCHC 28.5 L, RDW Std Deviation 47.3 H, RDW Coeff of Harlan 16.4 H, Plt Count 101 L, MPV 10.3, Immature Gran % (Auto) 0.700, Neut % (Auto) 58.9, Lymph % (Auto) 29.8, Martin % (Auto) 10.2 H, Eos % (Auto) 0.0, Baso % (Auto) 0.4, Absolute Neuts (auto) 2.7, Absolute Lymphs (auto) 1.35, Nucleated RBC % 0 05/02/22 03:24: Sodium 131 L, Potassium 5.0, Chloride 97 L, Carbon Dioxide 24.0, Anion Gap 10, BUN 15, Creatinine 0.69 L, Estim Creat Clear Calc 114.42, Est GFR (MDRD) Af Amer 153, Est GFR (MDRD) Non-Af 127, BUN/Creatinine Ratio 21.7 H, Glucose 274 H, Calcium 7.6 L, Total Bilirubin 0.80, AST 46 H, ALT 44, Alkaline Phosphatase 60, Total Protein 7.3, Albumin 2.7 L, Globulin 4.6 H, Albumin/Globulin Ratio 0.6 L 05/02/22 03:24: Lactic Acid 1.3 05/02/22 05:21: POC Glucose 275 H Micro: Microbiology 05/01/22 23:30 Stool Stool Occult Blood (MYRON) - Final Radiography Diagnostic Testing: Radiology Impression Abdomen/Pelvis CT 05/01/22 23:07 IMPRESSION: 1. There may be a few small varices in the gastrohepatic ligament. No significant esophageal varices. 2. Mildly nodular liver contour suggestive of cirrhosis. 3. Cholelithiasis. 4. Slight ascites. 5. Numerous sigmoid diverticuli without diverticulitis. 6. Borderline sized gastrohepatic and paraesophageal lymph nodes. Electronically Signed: Aldair Begum MD at 0:33 EDT , Physical Exam Const alert, oriented x3 and no apparent distress General Appearance: cooperative HEENT normocephalic and moist oral mucous membranes Eyes PERRL, EOMs intact bilaterally and conjunctivae normal Neck supple and no JVD Resp normal respiratory effort, no retractions, no use of accessory muscles and clear to auscultation bilaterally Auscultation: Negative for crackles, rales, rhonchi or wheezes Cardio regular rate, regular rhythm, S1 normal heart sound, S2 normal heart sound and no murmurs GI soft to palpation, non-tender and non-distended; Negative for hepatosplenomegaly Extremity no clubbing, cyanosis or edema Skin no rashes or lesions noted Neuro no focal motor deficits and no sensory deficits noted Psych affect normal Appearance: appropriate Assessment & Plan Assessment/Plan (1) Acute blood loss anemia: (2) Acute GI bleeding: PLAN: Plan 1. Acute GI bleed with blood loss anemia/alcohol abuse/GERD/cirrhosis ? Had extensive discussion with his alcohol use, will need to follow-up with 180 s at discharge ? Appreciate gastroenterology's assistance ? Plan for EGD today for evaluation and then further treatment based on findings ? Currently receiving a blood transfusion, will recheck hemoglobin once completed ? Continue with PPI and octreotide ? Continue with the CIWA protocol, continue with as needed Ativan 2. DM2 ? Hold his home oral medications ? He is n.p.o. ? Sliding scale insulin ? Accu-Cheks ? We will make adjustments as necessary 3 HTN ? Blood pressures are stable ? Continue with metoprolol ? Hold his brain DVT: SCDs Charges/Coding Visit Charges Inpatient E&M: 70168 Subs Hosp L2
[2022-05-02 11:25] LABS: Hematocrit 29.4 % (40-54); Hemoglobin 9.3 g/dL (13.0-16.5)
--- NOTE | 2022-05-02 11:55 | CASEMGMT ---
RN ARTURO Face to Face with patient for initial transition planning/care coordination assessment. RN CM introduced self and role at [facility]. Patient lying in bed, alert and oriented, family at bedside. Patient willing to participate in assessment and is able to answer all questions appropriately. Care providers, pharmacy, and demographics verified. Patient wishes to discharge home, denies need for home health at this time. Patient states he has no further needs or concerns at this time. CM to follow for discharge planning needs that may arise. PCP: [facility] Specialists: none Preferred Pharmacy: [facility] Insurance: MMO Prescription Benefit: yes Living Will/HPOA: none LNOK: brother, sister Living Arrangements: Patient lives alone in a single story home with 2 steps to enter. Patient states he is independent at home. Transportation: self, family DME/HHC: Patient denies DME or previous HHC. Disposition Plan: Patient to discharge home with family support and follow-up plans in place. Gavi NGO, RN, CM
--- NOTE | 2022-05-02 12:27 | EKG12_ITS ---
Test Reason : preop Blood Pressure : / mmHG Vent. Rate : 090 BPM Atrial Rate : 090 BPM P-R Int : 184 ms QRS Dur : 088 ms QT Int : 372 ms P-R-T Axes : 061 -11 051 degrees QTc Int : 455 ms Normal sinus rhythm Normal ECG No previous ECGs available Confirmed by RICARDO ARGUELLES, SOPHIA ([id number]), food expeditor KATARZYNA PLAZA ([id number]) on 05/10/2022 11:11:03 AM Referred By: Yulisa Confirmed By:SOPHIA SILVA MD
[2022-05-02 12:58] LABS: Bilirubin, Direct 0.38 mg/dL (0.00-0.30)
[2022-05-02 13:11] LABS: Bedside Glucose 256 mg/dL (74-106)
[2022-05-02 13:42] LABS: Hemoglobin A1c 8.3 % (3.8-5.6)
--- NOTE | 2022-05-02 14:20 | CASEMGMT ---
SW met with patient. Introduced self and role at [facility]. Patient said he would take resources. SW provided patient with a list of counseling agencies, AA list, and information on addiction Stages of change. Sona HILL
[2022-05-02] MEDS: Lactated Ringers 1,000 ML 15 ML IV (15:44)
--- NOTE | 2022-05-02 16:47 | OP.CCLET_ITS ---
07/20/2022 Earl Brandon [address] [place] [address] [place] [address] Re : Upper GI endoscopy procedure for Kenny Whitten Dear Dr. Brandon This procedure was performed on Monday, May 02, 2022. My impressions and recommendations are as follows: Impressions : - Bleeding grade II esophageal varices. Incompletely eradicated. Banded. - Portal hypertensive gastropathy. - Normal second portion of the duodenum. - No specimens collected. Recommendations : - Return patient to [facility] for [facility] care. - Full liquid diet today. - Continue ceftriaxone 1 g every 24 hours x2 days and it could be transition to Cipro or Levaquin 500 mg a day to complete a 5-day course -Start nadolol 10 mg twice a day -Start lactulose 20 cc once to twice a day for 3 bowel once a day -Start Xifaxan 550 mg twice a day -Protonix 40 mg p.o. twice daily after completing a 2-day course of PPI drip -Octreotide can be stopped. My findings are described in the full procedure note, which is enclosed. If I can be of further assistance, please feel free to contact me at . Sincerely, Duncan Colon, 05/02/2022 4:46:38 PM This report has been signed electronically.
--- NOTE | 2022-05-02 16:47 | OP.EGD_ITS ---
Patient Name: Kenny Whitten Procedure Date: 05/02/2022 4:05 PM Date of : 1970 Age: 52 Procedure: Upper GI endoscopy Indications: Coffee-ground emesis, Hematochezia Providers: Duncan Colon DO Medicines: Monitored Anesthesia Care Patient Profile: This is a 52 year old male. Refer to note in patient chart for documentation of history and physical. Patient has symptoms of acute vomiting. Complications: No immediate complications. Procedure: Pre-Anesthesia Assessment: - Prior to the procedure, a History and Physical was performed, and patient medications and allergies were reviewed. The risks and benefits of the procedure and the sedation options and risks were discussed with the patient. All questions were answered and informed consent was obtained. Patient identification and proposed procedure were verified by the physician in the pre-procedure area. Mental Status Examination: alert and oriented. Airway Examination: normal oropharyngeal airway and neck mobility. Respiratory Examination: clear to auscultation. CV Examination: normal. Prophylactic Antibiotics: The patient does not require prophylactic antibiotics. Prior Anticoagulants: The patient has taken no previous anticoagulant or antiplatelet agents. After reviewing the risks and benefits, the patient was deemed in satisfactory condition to undergo the procedure. The anesthesia plan was to use moderate sedation / analgesia (conscious sedation). Immediately prior to administration of medications, the patient was re-assessed for adequacy to receive sedatives. The heart rate, respiratory rate, oxygen saturations, blood pressure, adequacy of pulmonary ventilation, and response to care were monitored throughout the procedure. The physical status of the patient was re-assessed after the procedure. After obtaining informed consent, the endoscope was passed under direct vision. Throughout the procedure, the patient's blood pressure, pulse, and oxygen saturations were monitored continuously. The gastroscope was introduced through the mouth, and advanced to the second part of duodenum. The upper GI endoscopy was accomplished without difficulty. The patient tolerated the procedure well. Scope In: 4:13:40 PM Scope Out: 4:35:46 PM Total Procedure Duration Time 0 hours 22 minutes 6 seconds Findings: Three columns of oozing grade II varices were found in the middle third of the esophagus and in the lower third of the esophagus, 33 cm from the incisors. They were 8 mm in largest diameter. Stigmata of recent bleeding were evident and red darleen signs were present. Three bands were successfully placed with incomplete eradication of varices. There was no bleeding during the procedure. Severe portal hypertensive gastropathy was found in the gastric body. The second portion of the duodenum was normal. Impression: - Bleeding grade II esophageal varices. Incompletely eradicated. Banded. - Portal hypertensive gastropathy. - Normal second portion of the duodenum. - No specimens collected. Recommendation: - Return patient to [facility] for ongoing care. - Full liquid diet today. - Continue ceftriaxone 1 g every 24 hours x2 days and it could be transition to Cipro or Levaquin 500 mg a day to complete a 5-day course -Start nadolol 10 mg twice a day -Start lactulose 20 cc once to twice a day for 3 bowel once a day -Start Xifaxan 550 mg twice a day -Protonix 40 mg p.o. twice daily after completing a 2-day course of PPI drip -Octreotide can be stopped. Procedure Code(s): --- Professional --- 33721, Esophagogastroduodenoscopy, flexible, transoral; with band ligation of esophageal/gastric varices CPT copyright 2017 [employer]. All rights reserved. The codes documented in this report are preliminary and upon argon tester review may be revised to meet current compliance requirements. Duncan Colon DO 05/02/2022 4:46:38 PM This report has been signed electronically. Number of Addenda: 1 Note Initiated On: 05/02/2022 4:05 PM Addendum Number: 1 Addendum Date: 07/20/2022 6:17:48 AM MAC was used as sedation for this procedure. Duncan Colon DO 07/20/2022 6:17:52 AM This report has been signed electronically.
[2022-05-02] MEDS: 0.9% Saline Lock 10 ML Syringe IV (18:00)
[2022-05-02] MEDS: 0.9% Normal Saline 1,000 ML 50 ML IV (18:00)
[2022-05-02] MEDS: Insulin Lispro 100 UNIT/ML INSULN.PEN SC ×2 (18:12→22:05)
[2022-05-02 18:30] LABS: Bedside Glucose 281 mg/dL (74-106)
[2022-05-02 22:30] LABS: Bedside Glucose 285 mg/dL (74-106)
[2022-05-03 02:00] VITALS: BP 152/84; PULSE 84; RESP 16; TEMP 36.9; O2SAT 94
[2022-05-03 03:00] VITALS: PULSE 80
--- NOTE | 2022-05-03 04:25 | NURSING ---
all documentation completed by Keiry HANSEN reviewed by this RN
[2022-05-03 06:00] VITALS: BP 144/89; PULSE 85; RESP 16; TEMP 36.6; O2SAT 94
[2022-05-03 06:17] LABS: Absolute Neutrophil Count 2.3 X10^3/uL (2.0-7.7); Basophil# 0.05 X10^3/uL; Hematocrit 29.2 % (40-54); Hemoglobin 9.2 g/dL (13.0-16.5); Lymphocyte % 37.5 % (19-41); Mean Corp Hgb Conc 31.5 g/dL (32-36); Mean Corpuscular Hgb 24.3 pg (27.0-32.0); Mean Platelet Vol. 10.4 fl (6.2-12.0); Monocyte# 0.65 X10^3/uL; Monocyte% 12.8 % (0-10); NRBC Flagged by Analyzer 0 % (0-5); Neutrophil # 2.34 X10^3/uL (2.7-7.7); Neutrophil % 46.3 % (47-70); Platelet Count 119 K/mm3 (150-450); RBC Distribution Width CV 16.6 % (11.6-14.6); RBC Distribution Width SD 46.3 fl (35.1-43.9); Red Blood Count 3.79 M/mm3 (4.6-6.2); White Blood Count 5.1 K/mm3 (4.4-11.0)
[2022-05-03 06:45] LABS: Anion Gap 9 (5-15); BUN 10 mg/dL (7-18); Calcium,Total 7.8 mg/dL (8.5-10.1); Chloride 96 mmol/L (98-107); Creatinine, Serum 0.77 mg/dL (0.70-1.30); EST Glomerular Filtration Rate 112 mL/min (>60); Est Glom Filt Rate - Afr Amer 135 mL/min (>60); Estimated Creatinine Clearance 102.54 ml/min; Glucose 220 mg/dL (74-106); Potassium 3.5 mmol/L (3.5-5.1); Sodium Level 132 mmol/L (136-145)
[2022-05-03] MEDS: Insulin Lispro 100 UNIT/ML INSULN.PEN SC ×2 (06:48→10:43)
[2022-05-03 07:00] VITALS: PULSE 84
--- NOTE | 2022-05-03 07:00 | PCM.PROGNOTE ---
Subjective Subjective Patient underwent an upper endoscopy yesterday for an upper GI bleed. He was discovered to have grade 3 esophageal varices with bleeding stigmata and severe portal gastropathy. He had varices that were banded. He has done well on octreotide, ceftriaxone IV and PPI drip. He is not having abdominal pain. He has been given liquids and he has been able to tolerate it without any problems. Objective Data Objective Data Vital Signs: Vital Signs Temp Pulse Resp BP Pulse Ox O2 Del Method O2 Flow Rate 98.2 F 88 16 152/89 H 97 Room Air 2 05/03/22 10:41 05/03/22 10:41 05/03/22 10:41 05/03/22 10:41 05/03/22 10:41 05/03/22 10:41 05/02/22 17:00 Oxygen Flow Rate (L/min) 2 Oxygen Delivery Method Room Air Weight: 174 lb 9.698 oz Body Mass Index (BMI) 28.3 Intake & Output: Intake and Output for Last 24 Hours 05/01/22 05/02/22 05/03/22 23:59 23:59 23:59 Intake Total 4213.33 / 4213.33 1533.83 / 1533.83 Balance 4213.33 / 4213.33 1533.83 / 1533.83 Lab / Micro Data Result Diagrams: 05/03/22 05:26 05/03/22 05:26 Labs: Laboratory Results - last 24 hr 05/02/22 18:07: POC Glucose 281 H 05/02/22 22:02: POC Glucose 285 H 05/03/22 05:26: WBC 5.1, RBC 3.79 L, Hgb 9.2 L, Hct 29.2 L, MCV 77.0 L, MCH 24.3 L, MCHC 31.5 L D, RDW Std Deviation 46.3 H, RDW Coeff of Harlan 16.6 H, Plt Count 119 L, MPV 10.4, Immature Gran % (Auto) 0.400, Neut % (Auto) 46.3 L, Lymph % (Auto) 37.5, [place] % (Auto) 12.8 H, Eos % (Auto) 2.0, Baso % (Auto) 1.0, Absolute Neuts (auto) 2.3, Absolute Lymphs (auto) 1.90, Nucleated RBC % 0 05/03/22 05:26: Sodium 132 L, Potassium 3.5, Chloride 96 L, Carbon Dioxide 27.0, Anion Gap 9, BUN 10, Creatinine 0.77, Estim Creat Clear Calc 102.54, Est GFR (MDRD) Af Amer 135, Est GFR (MDRD) Non-Af 112, BUN/Creatinine Ratio 13.0, Glucose 220 H, Calcium 7.8 L 05/03/22 06:46: POC Glucose 224 H 05/03/22 10:42: POC Glucose 259 H Micro: Microbiology 05/01/22 23:30 Stool Stool Occult Blood (MYRON) - Final Physical Exam Narrative Const alert, oriented x3 and no apparent distress General Appearance: cooperative HEENT normocephalic and moist oral mucous membranes Eyes PERRL, EOMs intact bilaterally and conjunctivae normal Neck supple and no JVD Resp normal respiratory effort, no retractions, no use of accessory muscles and clear to auscultation bilaterally Auscultation: Negative for crackles, rales, rhonchi or wheezes Cardio regular rate, regular rhythm, S1 normal heart sound, S2 normal heart sound and no murmurs GI soft to palpation, non-tender and non-distended; Negative for hepatosplenomegaly Extremity no clubbing, cyanosis or edema Skin no rashes or lesions noted Neuro no focal motor deficits and no sensory deficits noted Psych affect normal Appearance: appropriate Assessment & Plan Assessment/Plan (1) Iron deficiency anemia: PLAN: Iron deficiency anemia likely secondary to severe portal gastropathy in the setting of cirrhosis. However he should get a colonoscopy due to to the fact that he is over the age of screening. (2) Cirrhosis: PLAN: Likely alcoholic cirrhosis. He will need full work-up to make sure he does not have any underlying disease that would affect his liver concomitantly. Recommend continue his metoprolol 50 mg twice a day as I do not want to introduce another beta-lori at this time. Also recommending lactulose 20 cc p.o. twice daily and Xifaxan 5 to 50 mg twice a day. He does not need midodrine, Lasix or Aldactone at this time. They can be assessed as an outpatient. (3) Acute blood loss anemia: PLAN: Acute GI blood loss secondary to variceal bleed status post banding. He received transfusion of 3 units of packed red blood cells and his hemoglobin is improving. (4) Acute GI bleeding: Charges/Coding Visit Charges Inpatient E&M: 74842 Subs Hosp L3
[2022-05-03 07:35] VITALS: O2SAT 94
[2022-05-03 08:10] LABS: Bedside Glucose 224 mg/dL (74-106)
[2022-05-03] MEDS: Thiamine Hydrochloride 100 MG Tablet PO (08:25)
[2022-05-03] MEDS: Multivitamins,Therapeutic Tablet 1 TABLET PO (08:25)
[2022-05-03] MEDS: Folic Acid 1 MG Tablet PO (08:25)
--- NOTE | 2022-05-03 09:02 | DCINST_ITS ---
Discharge Instructions Diet Discharge Diet: Low fat / Low cholesterol Activity Discharge Activity: Return to Normal Activity Dressing / Incision Call your doctor if you observe: Fever of 101 or Higher, Shortness of breath, Dizziness, Fainting spells, Swelling in the ankles, Chest pain and Increased palpitations (irregular heartbeat) Follow Up Care Test Results: Test results from this visit will be discussed in further detail at your follow- up appointment, if applicable. Discharge Plan Admission Admit Date/Time: 05/01/22 23:58 Attending Provider: Fernando Márquez Primary Care Provider: Earl Brandon Consulting Providers: Rody Zurita Discharge Orders/Prescriptions Prescriptions: New levofloxacin 500 mg tablet 500 mg PO DAILY 5 Days Qty: 5 0RF Kristalose 20 gram packet 20 g PO BID Qty: 30 3RF Xifaxan 550 mg tablet 550 mg PO BID Qty: 60 0RF pantoprazole [Protonix] 40 mg tablet,delayed release (DR/EC) 40 mg PO BID 30 Days Qty: 60 0RF Continued metoprolol tartrate 50 mg tablet 50 tab PO BID Label Comments: TAKE ONE TABLET BY MOUTH TWICE DAILY WITH FOOD Held aspirin 81 mg Tablet,Delayed Release (Dr/Ec) 81 mg PO DAILY Hold Instructions: Resume on 05/09/22. Referrals / Follow Up: Earl Brandon DO [Primary Care Provider] - Within 1 Week Disposition Disposition (needs filled in before D/C Order can be placed): Home, Self Care
--- NOTE | 2022-05-03 09:07 | DS.PCM_ITS ---
Providers Date of Admission: 05/01/22 Primary Care Physician: Dr. Earl Brandon, DO Consultations 05/02/22 01:33 Consult: Gastroenterology Routine Consulting Provider: Angela G[facility] Reason for Consult: Upper GI bleed, acute blood loss anemia, EtOh abuse EMERGENT Consult: No MD Notified: Yes Date Notified: 05/02/22 Time Notified: 06:30 Method of Notification: Text Reason For Visit: ACUTE BLOOD LOSS ANEMIMA, UPPER GI BLEED, Diagnosis Discharge Diagnosis (1) Acute blood loss anemia: Status: Acute Code(s): D62 - Acute posthemorrhagic anemia (2) Acute GI bleeding: Status: Acute Code(s): K92.2 - Gastrointestinal hemorrhage, unspecified Plan 1. Acute GI bleed with blood loss anemia/alcohol abuse/GERD/cirrhosis ? Had extensive discussion with his alcohol use, will need to follow-up with [facility] at discharge ? Appreciate gastroenterology's assistance ? Plan for EGD today for evaluation and then further treatment based on findings ? Currently receiving a blood transfusion, will recheck hemoglobin once completed ? Continue with PPI and octreotide ? Continue with the CIWA protocol, continue with as needed Ativan 2. DM2 ? Hold his home oral medications ? He is n.p.o. ? Sliding scale insulin ? Accu-Cheks ? We will make adjustments as necessary 3 HTN ? Blood pressures are stable ? Continue with metoprolol ? Hold his brain DVT: SCDs Medications at Discharge Home Medications aspirin 81 mg tablet,delayed release 81 mg PO DAILY 05/01/22 metoprolol tartrate 50 mg tablet 50 tab PO BID 05/01/22 lactulose 20 gram oral packet (Kristalose) 20 g PO BID #30 ea 05/03/22 levofloxacin 500 mg tablet 500 mg PO DAILY 5 days #5 tabs 05/03/22 pantoprazole 40 mg tablet,delayed release (Protonix) 40 mg PO BID 30 days #60 tabs 05/03/22 rifaximin 550 mg tablet (Xifaxan) 550 mg PO BID #60 tabs 05/03/22 Hospital Course Operations None Procedures EGD Summary of Care Provided Minutes Spent on Discharge: 43 Hospital Course: Per HPI: The patient is a 52 y/o M w/ PMHx: Diabetes mellitus type II, HTN, EtOH Abuse (12 beers daily, notes no withdrawal symptoms if he drinks less) who presents to the [facility] ED on 05/01/22 with history of onset at approximately 8:30 AM sudden nausea with several bouts of emesis reportedly hematemesis with through the day 3 episodes of dark black tarry melanotic appearing stools with no abdominal cramping or any pain or any epigastric discomfort with no recent fevers or chills or increased alcohol intake however given appearance of his emesis in his stools prompted ED evaluation.? He does report being fatigued but no lightheadedness or dizziness.? Work-up in the ED included T97.8, heart rate 92, BP 116/63, respiratory rate 16, 98% on room air, CBC with WC 3.4, hemoglobin 7.3 with MCV 77.8, platelet 115 without marked shift, coags with PT 17, INR 1.4, PTT 31.5, CMP with sodium 132, chloride 97, glucose 264, lactic acid 3.1, hepatic profile not marked appearing aside AST mildly elevated 54, lipase 164, ethyl alcohol 13, type and cross for 1 unit per ED physician, despite recent melanotic appearing stools guaiac was negative, CT abdomen and pelvis with potentially few small varices in the gastropathic ligament with no significant esophageal varices, mildly nodular liver contour suggestive of cirrhosis, cholelithiasis, slight ascites, numerous sigmoid diverticuli without diverticul itis, borderline sized gastrohepatic and paraesophageal lymph nodes.? Discussed case at length with the ED physician and decision to administer 1 unit PRBC ordered by ED physician, initiate octreotide as well as Protonix drip and will initiate also upon admission IV Rocephin therapy with plan GI consultation. Hospital Course: 1. Acute GI bleed with blood loss anemia secondary to esophageal and gastric varices from cirrhosis secondary to alcohol abuse/GERD?52-year-old male presented to the hospital with acute anemia. He required multiple transfusions. EGD demonstrated esophageal varices with portal hypertensive gastropathy. Esophageal varices were banded. He was continued on his metoprolol but he had lactulose and Xifaxan added. He will continue with Levaquin for 5 days total and will need to be on PPI twice daily for a month and then he can go down to daily dosing. I do recommend that he follow-up with his PCP as well as gastroenterology as an outpatient. I also discussed that he needs to meet with 180 before discharge to set up outpatient alcohol rehab. I discussed with him the plan for discharge today he expressed understanding of the risk benefits of going home and would like to go home today. His hemoglobin is stable over 9 as I do recommend outpatient follow-up for this as well. 2. Hypertension is a chronic medical condition which complicates his care. His home medications were continued where appropriate Physical Exam Narrative Const alert, oriented x3 and no apparent distress General Appearance: cooperative HEENT normocephalic and moist oral mucous membranes Eyes PERRL, EOMs intact bilaterally and conjunctivae normal Neck supple and no JVD Resp normal respiratory effort, no retractions, no use of accessory muscles and clear to auscultation bilaterally Auscultation: Negative for crackles, rales, rhonchi or wheezes Cardio regular rate, regular rhythm, S1 normal heart sound, S2 normal heart sound and no murmurs GI soft to palpation, non-tender and non-distended; Negative for hepatosplenomegaly Extremity no clubbing, cyanosis or edema Skin no rashes or lesions noted Neuro no focal motor deficits and no sensory deficits noted Psych affect normal Appearance: appropriate Weight / BMI Weight Weight: 174 lb 9.698 oz Body Mass Index (BMI) 28.3 ABG / Lab / Microbiology Data Result Diagrams: 05/03/22 05:26 05/03/22 05:26 Laboratory: Laboratory Results - last 24 hr 05/01/22 23:35: Crossmatch See Detail 05/02/22 03:24: Total Bilirubin Cancelled, Direct Bilirubin 0.38 H, AST Cancelled, ALT Cancelled, Alkaline Phosphatase Cancelled, Total Protein Cancelled, Albumin Cancelled, Globulin Cancelled 05/02/22 11:10: Hgb 9.3 L, Hct 29.4 L 05/02/22 11:10: Hemoglobin A1c 8.3 H 05/02/22 12:48: POC Glucose 256 H 05/02/22 18:07: POC Glucose 281 H 05/02/22 22:02: POC Glucose 285 H 05/03/22 05:26: WBC 5.1, RBC 3.79 L, Hgb 9.2 L, Hct 29.2 L, MCV 77.0 L, MCH 24.3 L, MCHC 31.5 L D, RDW Std Deviation 46.3 H, RDW Coeff of Harlan 16.6 H, Plt Count 119 L, MPV 10.4, Immature Gran % (Auto) 0.400, Neut % (Auto) 46.3 L, Lymph % (Auto) 37.5, [place] % (Auto) 12.8 H, Eos % (Auto) 2.0, Baso % (Auto) 1.0, Absolute Neuts (auto) 2.3, Absolute Lymphs (auto) 1.90, Nucleated RBC % 0 05/03/22 05:26: Sodium 132 L, Potassium 3.5, Chloride 96 L, Carbon Dioxide 27.0, Anion Gap 9, BUN 10, Creatinine 0.77, Estim Creat Clear Calc 102.54, Est GFR (MDRD) Af Amer 135, Est GFR (MDRD) Non-Af 112, BUN/Creatinine Ratio 13.0, Glucose 220 H, Calcium 7.8 L 05/03/22 06:46: POC Glucose 224 H Microbiology: Microbiology 05/01/22 23:30 Stool Stool Occult Blood (MYRON) - Final D/C Instructions Discharge Diet: Low fat / Low cholesterol Call your doctor if you observe: Fever of 101 or Higher, Shortness of breath, Dizziness, Fainting spells, Swelling in the ankles, Chest pain and Increased palpitations (irregular heartbeat) Meaningful Use Info Meaningful Use Diagnoses (Choose all that apply): None applicable Discharge Plan Admission Admit Date/Time: 05/01/22 23:58 Attending Provider: Fernando Márquez Primary Care Provider: Earl Brandon Consulting Providers: Rody Zurita Instructions Additional Instructions / Restrictions: Follow-up with your PCP in 3 to 5 days to obtain a CBC to monitor your hemoglobin given your anemia from your GI bleed. Discharge Orders/Prescriptions Prescriptions: New levofloxacin 500 mg tablet 500 mg PO DAILY 5 Days Qty: 5 0RF Kristalose 20 gram packet 20 g PO BID Qty: 30 3RF Xifaxan 550 mg tablet 550 mg PO BID Qty: 60 0RF pantoprazole [Protonix] 40 mg tablet,delayed release (DR/EC) 40 mg PO BID 30 Days Qty: 60 0RF Continued metoprolol tartrate 50 mg tablet 50 tab PO BID Label Comments: TAKE ONE TABLET BY MOUTH TWICE DAILY WITH FOOD Held aspirin 81 mg Tablet,Delayed Release (Dr/Ec) 81 mg PO DAILY Hold Instructions: Resume on 05/09/22. Referrals / Follow Up: Earl Brandon DO [Primary Care Provider] - Within 1 Week FriendDuncan DO [STAFF PHYSICIAN] - Within 1 Month Disposition Disposition (needs filled in before D/C Order can be placed): Home, Self Care Charges/Coding Visit Charges Inpatient E&M: 97648 Disch Hosp
[2022-05-03 10:41] VITALS: BP 152/89; PULSE 88; RESP 16; TEMP 36.8; O2SAT 97
[2022-05-03 11:05] LABS: Bedside Glucose 259 mg/dL (74-106)
== END 2022-05-03 16:26 | disposition home or self-care (01) | DRG 369 ==
LOC: ED 23:15 → PCU 05-02 00:07
PROVIDERS: Anesthesiology; Internal Medicine Gastroenterology; Admitting Provider Family Medicine; Emergency Provider Emergency Medicine; PCP Family Medicine; Visit Provider Family Medicine
PROC: 0DJ08ZZ Inspection of Upper Intestinal Tract, Via Natural or Artificial Opening Endoscopic (ICD-10-PCS; CPT 43235; principal; 2022-05-02 16:10)
DX: I85.01 Esophageal varices with bleeding (principal); D62 Acute posthemorrhagic anemia; K76.6 Portal hypertension; K70.30 Alcoholic cirrhosis of liver without ascites; E11.9 Type 2 diabetes mellitus without complications; I10 Essential (primary) hypertension; K21.9 Gastro-esophageal reflux disease without esophagitis; K31.89 Other diseases of stomach and duodenum; E78.5 Hyperlipidemia, unspecified; K25.0 Acute gastric ulcer with hemorrhage; Z79.82 Long term (current) use of aspirin; Z79.899 Other long term (current) drug therapy
CPT/HCPCS: 36415; 74177; 80048; 80053; 80076; 82077; 82248; 82274; 82962; 83036; 83605; 83690; 83735; 84100; 85014; 85018; 85025; 85610; 85730; 86850; 86900; 86901; 86920; 93005; 99251; 99284; J7030; J7040; J7120; P9016; Q9967; A4216; G0463; J2354; J2405; J3490

== ENCOUNTER → 2022-05-11 | Outpatient (CLI) | payer OTHER, SELFPAY ==
[2022-05-11 09:49] LABS: Absolute Lymphocyte Count 1.17 X10^3/uL (0.83-4.51); Absolute Neutrophil Count 1.5 X10^3/uL (2.0-7.7); Basophil# 0.06 X10^3/uL; Basophil% 1.7 % (0-1); Eosinophil# 0.11 X10^3/uL; Eosinophils% 3.1 % (0-5); Hematocrit 32.8 % (40-54); Hemoglobin 10.1 g/dL (13.0-16.5); Lymphocyte # 1.17 X10^3/ul (0.83-4.51); Lymphocyte % 32.9 % (19-41); Mean Corp Hgb Conc 30.8 g/dL (32-36); Mean Corpuscular Hgb 24.2 pg (27.0-32.0); Mean Corpuscular Volume 78.7 fL (80-94); Mean Platelet Vol. 10.7 fl (6.2-12.0); Monocyte# 0.72 X10^3/uL; Monocyte% 20.2 % (0-10); NRBC Flagged by Analyzer 0 % (0-5); Neutrophil # 1.49 X10^3/uL (2.7-7.7); Neutrophil % 41.8 % (47-70); Platelet Count 142 K/mm3 (150-450); RBC Distribution Width CV 18.3 % (11.6-14.6); RBC Distribution Width SD 52.3 fl (35.1-43.9); Red Blood Count 4.17 M/mm3 (4.6-6.2); White Blood Count 3.6 K/mm3 (4.4-11.0)
[2022-05-11 10:07] LABS: International Normalized Ratio 1.4; Prothrombin Time (Protime)PT. 17.1 SECONDS (11.7-14.9)
[2022-05-11 10:17] LABS: Vitamin B12 874 pg/mL (211-911)
[2022-05-11 10:34] LABS: ALB/GLOB Ratio 0.6 RATIO (0.9-2.4); AST(SGOT) 69 U/L (15-37); Alanine Aminotransfer ALT/SGPT 57 U/L (16-61); Albumin, Serum 3.1 g/dL (3.2-5.0); Alkaline Phosphatase 79 U/L (45-117); Anion Gap 3 (5-15); BUN 8 mg/dL (7-18); BUN/Creat Ratio 8.6 RATIO (10-20); Calcium,Total 8.2 mg/dL (8.5-10.1); Chloride 100 mmol/L (98-107); Creatinine, Serum 0.92 mg/dL (0.70-1.30); EST Glomerular Filtration Rate 91 mL/min (>60); Est Glom Filt Rate - Afr Amer 110 mL/min (>60); Globulin 5.2 g/dL (2.2-4.2); Glucose 279 mg/dL (74-106); Potassium 4.1 mmol/L (3.5-5.1); Protein, Total 8.3 g/dL (6.4-8.2); Sodium Level 130 mmol/L (136-145)
== END | disposition home or self-care (01) ==
LOC: LAB 09:20
PROVIDERS: PCP Family Medicine; Referring Provider Family Medicine; Visit Provider Family Medicine
DX: I10 Essential (primary) hypertension (principal); K70.30 Alcoholic cirrhosis of liver without ascites; D64.9 Anemia, unspecified
CPT/HCPCS: 36415; 80053; 82607; 82746; 85025; 85610

== ENCOUNTER → 2022-06-22 | Outpatient (CLI) | payer OTHER, SELFPAY ==
[2022-06-22 14:50] LABS: International Normalized Ratio 1.3
[2022-06-22 15:07] LABS: Ammonia < 10.0 umol/L (11-32)
[2022-06-22 15:34] LABS: ALB/GLOB Ratio 0.6 RATIO (0.9-2.4); AST(SGOT) 41 U/L (15-37); Alanine Aminotransfer ALT/SGPT 48 U/L (16-61); Albumin, Serum 3.2 g/dL (3.2-5.0); Alkaline Phosphatase 86 U/L (45-117); Anion Gap 8 (5-15); BUN 7 mg/dL (7-18); BUN/Creat Ratio 8.2 RATIO (10-20); Calcium,Total 9.5 mg/dL (8.5-10.1); Chloride 97 mmol/L (98-107); Creatinine, Serum 0.86 mg/dL (0.70-1.30); EST Glomerular Filtration Rate 99 mL/min (>60); Est Glom Filt Rate - Afr Amer 120 mL/min (>60); Globulin 5.5 g/dL (2.2-4.2); Glucose 239 mg/dL (74-106); Potassium 3.9 mmol/L (3.5-5.1); Protein, Total 8.7 g/dL (6.4-8.2); Sodium Level 134 mmol/L (136-145)
== END | disposition home or self-care (01) ==
LOC: LAB 14:11
PROVIDERS: PCP Family Medicine; Visit Provider Internal Medicine Gastroenterology
DX: K74.60 Unspecified cirrhosis of liver (principal)
CPT/HCPCS: 36415; 80053; 82140; 85610

== ENCOUNTER → 2022-08-11 | Outpatient (CLI) | payer OTHER, SELFPAY ==
[2022-08-11 12:17] LABS: Absolute Lymphocyte Count 2.51 X10^3/uL (0.83-4.51); Absolute Neutrophil Count 4.6 X10^3/uL (2.0-7.7); Basophil# 0.07 X10^3/uL; Basophil% 0.9 % (0-1); Eosinophil# 0.12 X10^3/uL; Eosinophils% 1.5 % (0-5); Hematocrit 36.5 % (40-54); Hemoglobin 12.2 g/dL (13.0-16.5); Lymphocyte # 2.51 X10^3/ul (0.83-4.51); Lymphocyte % 31.3 % (19-41); Mean Corp Hgb Conc 33.4 g/dL (32-36); Mean Corpuscular Volume 89.7 fL (80-94); Mean Platelet Vol. 9.9 fl (6.2-12.0); Monocyte# 0.67 X10^3/uL; Monocyte% 8.3 % (0-10); NRBC Flagged by Analyzer 0 % (0-5); Neutrophil # 4.64 X10^3/uL (2.7-7.7); Neutrophil % 57.8 % (47-70); Platelet Count 192 K/mm3 (150-450); RBC Distribution Width CV 15.9 % (11.6-14.6); RBC Distribution Width SD 50.1 fl (35.1-43.9); Red Blood Count 4.07 M/mm3 (4.6-6.2)
[2022-08-11 12:37] LABS: Cholesterol 180 mg/dL (200); High Density Lipoprotein 40 mg/dL; Triglycerides 112 mg/dL; Very Low Density Lipoprotein 22 mg/dL (5-40)
[2022-08-11 13:07] LABS: Hemoglobin A1c 8.5 % (3.8-5.6)
== END | disposition home or self-care (01) ==
LOC: BFHLAB 10:44
PROVIDERS: PCP Family Medicine; Visit Provider Family Medicine
DX: E11.9 Type 2 diabetes mellitus without complications (principal); D64.9 Anemia, unspecified
CPT/HCPCS: 36415; 80061; 83036; 85025

== ENCOUNTER → 2022-09-07 | Outpatient (CLI) | payer OTHER, SELFPAY ==
[2022-09-07 16:05] LABS: Absolute Lymphocyte Count 2.56 X10^3/uL (0.83-4.51); Absolute Neutrophil Count 2.4 X10^3/uL (2.0-7.7); Basophil# 0.07 X10^3/uL; Basophil% 1.2 % (0-1); Eosinophil# 0.12 X10^3/uL; Eosinophils% 2.1 % (0-5); Hematocrit 39.3 % (40-54); Hemoglobin 12.7 g/dL (13.0-16.5); Lymphocyte # 2.56 X10^3/ul (0.83-4.51); Lymphocyte % 44.4 % (19-41); Mean Corp Hgb Conc 32.3 g/dL (32-36); Mean Corpuscular Volume 89.7 fL (80-94); Monocyte# 0.61 X10^3/uL; Monocyte% 10.6 % (0-10); NRBC Flagged by Analyzer 0 % (0-5); Neutrophil % 41.5 % (47-70); Platelet Count 182 K/mm3 (150-450); RBC Distribution Width CV 12.5 % (11.6-14.6); RBC Distribution Width SD 41.4 fl (35.1-43.9); Red Blood Count 4.38 M/mm3 (4.6-6.2); White Blood Count 5.8 K/mm3 (4.4-11.0)
[2022-09-07 16:16] LABS: International Normalized Ratio 1.2; Prothrombin Time (Protime)PT. 14.7 SECONDS (11.7-14.9)
[2022-09-07 17:03] LABS: ALB/GLOB Ratio 0.7 RATIO (0.9-2.4); AST(SGOT) 27 U/L (15-37); Alanine Aminotransfer ALT/SGPT 39 U/L (16-61); Albumin, Serum 3.6 g/dL (3.2-5.0); Alkaline Phosphatase 124 U/L (45-117); Anion Gap 9 (5-15); BUN 11 mg/dL (7-18); BUN/Creat Ratio 13.3 RATIO (10-20); Calcium,Total 9.1 mg/dL (8.5-10.1); Chloride 95 mmol/L (98-107); Creatinine, Serum 0.82 mg/dL (0.70-1.30); EST Glomerular Filtration Rate 103 mL/min (>60); Est Glom Filt Rate - Afr Amer 125 mL/min (>60); Globulin 5.2 g/dL (2.2-4.2); Glucose 267 mg/dL (74-106); Potassium 3.5 mmol/L (3.5-5.1); Protein, Total 8.8 g/dL (6.4-8.2); Sodium Level 132 mmol/L (136-145)
== END | disposition home or self-care (01) ==
LOC: LAB 15:15
PROVIDERS: PCP Family Medicine; Visit Provider Internal Medicine Gastroenterology
DX: K74.60 Unspecified cirrhosis of liver (principal)
CPT/HCPCS: 36415; 80053; 85025; 85610

== ENCOUNTER → 2022-11-07 | Outpatient (CLI) | payer OTHER, SELFPAY ==
[2022-11-07 12:32] LABS: PSA,Total - Annual Screen 0.47 ng/mL (0.00-4.00)
[2022-11-07 12:51] LABS: Hemoglobin A1c 9.9 % (3.8-5.6)
== END | disposition home or self-care (01) ==
LOC: BFHLAB 10:42
PROVIDERS: PCP Family Medicine; Visit Provider Family Medicine
DX: E11.9 Type 2 diabetes mellitus without complications (principal); Z12.5 Encounter for screening for malignant neoplasm of prostate
CPT/HCPCS: 36415; 83036; 84153; G0103

== ENCOUNTER → 2023-01-23 | Outpatient (CLI) | payer OTHER, SELFPAY ==
[2023-01-23 12:28] LABS: Absolute Lymphocyte Count 1.93 X10^3/uL (0.83-4.51); Basophil# 0.06 X10^3/uL; Eosinophil# 0.11 X10^3/uL; Eosinophils% 1.9 % (0-5); Hematocrit 44.2 % (40-54); Lymphocyte # 1.93 X10^3/ul (0.83-4.51); Lymphocyte % 32.7 % (19-41); Mean Corp Hgb Conc 33.9 g/dL (32-36); Mean Corpuscular Hgb 30.9 pg (27.0-32.0); Mean Corpuscular Volume 90.9 fL (80-94); Mean Platelet Vol. 10.2 fl (6.2-12.0); Monocyte# 0.75 X10^3/uL; Monocyte% 12.7 % (0-10); NRBC Flagged by Analyzer 0 % (0-5); Neutrophil # 3.03 X10^3/uL (2.7-7.7); Neutrophil % 51.4 % (47-70); Platelet Count 146 K/mm3 (150-450); RBC Distribution Width CV 12.2 % (11.6-14.6); RBC Distribution Width SD 40.6 fl (35.1-43.9); Red Blood Count 4.86 M/mm3 (4.6-6.2); White Blood Count 5.9 K/mm3 (4.4-11.0)
[2023-01-23 12:37] LABS: International Normalized Ratio 1.3; Prothrombin Time (Protime)PT. 15.7 SECONDS (11.7-14.9)
[2023-01-23 13:21] LABS: ALB/GLOB Ratio 0.7 RATIO (0.9-2.4); AST(SGOT) 23 U/L (15-37); Alanine Aminotransfer ALT/SGPT 33 U/L (16-61); Albumin, Serum 3.6 g/dL (3.2-5.0); Alkaline Phosphatase 126 U/L (45-117); Anion Gap 5 (5-15); BUN 10 mg/dL (7-18); BUN/Creat Ratio 13.4 RATIO (10-20); CRP < 2.90 mg/L (0.0-3.0); Calcium,Total 8.9 mg/dL (8.5-10.1); Chloride 99 mmol/L (98-107); Creatinine, Serum 0.75 mg/dL (0.70-1.30); EST Glomerular Filtration Rate 115 mL/min (>60); Est Glom Filt Rate - Afr Amer 140 mL/min (>60); Globulin 4.9 g/dL (2.2-4.2); Glucose 217 mg/dL (74-106); Protein, Total 8.5 g/dL (6.4-8.2); Sodium Level 130 mmol/L (136-145)
[2023-01-23 13:40] LABS: Hemoglobin A1c 8.5 % (3.8-5.6)
== END | disposition home or self-care (01) ==
LOC: LAB 12:13
PROVIDERS: PCP Family Medicine; Referring Provider Internal Medicine Gastroenterology; Visit Provider Internal Medicine Gastroenterology
DX: I85.00 Esophageal varices without bleeding (principal); K74.60 Unspecified cirrhosis of liver
CPT/HCPCS: 80053; 82105; 82140; 82677; 83036; 84702; 85025; 85610; 86140

== ENCOUNTER 2023-05-03 05:22 | Day surgery (SDC) | payer OTHER, SELFPAY ==
[2023-05-03] VITALS (7 sets, daily range): BP systolic 92–150; BP diastolic 56–82; PULSE 60–71; RESP 16; TEMP 36.6; O2SAT 98–100; BMI 26.9
[2023-05-03] MEDS: Lactated Ringers 1,000 ML 15 ML IV (05:54)
--- NOTE | 2023-05-03 06:18 | HP.PCM_ITS ---
History and Physical Date of Admission: 05/03/23 52 M who presents to the office today for *[facility] hospitalization 05.01.22-05.03.22. [facility] ED with multiple bloody emesis and one loose dark stool in the setting of anticoagulation with baby aspirin. Consumes 12 beers a day with cirrhosis seen on CT scan raising concern for esophageal varices; hemoglobin 7.3. He was admitted and GI consulted same day for cirrhosis and blood loss/iron deficiency anemia; EGD performed same day with bleeding varices, banded. CT abd/pel 05.01.22 with nodular liver contour suggestive of cirrhosis, slight ascites; cholelithiasis; sigmoid diverticulosis; possible small varices in gastrohepatic ligament; borderline sized gastrohepatic and paraesophageal lymph nodes. EGD 05.02.22 Bleeding grade II esophageal varices, banded; portal hypertensive gastropathy. No specimens collected. OV 06.22.22 without sleep disturbance, confusion, balance issues, pruritis, jaundice. Historic use of 12 alcoholic drinks/day; none since hospitalization. BM with increased flatulence 3-4/morning and 2-3/evening with continued lactu lose and pattern interrupts lifestyle. Contact 06.23.22 to report he is currently taking Metformin; previously took gabapentin. OV 09.09.22 Feels he is doing well overall. Sleep pattern is disturbed, will wake after an hour and be awake for several hours; often has to urinate when this happens. Feels he is doing well overall without balance issues, brain fog, confusion, difficulty doing ADL. May have a mild yellow tinge to skin today. Lactulose and Xifaxan scripts ended late June/early July. Lactulose restarted, ursodiol started. OV 01.04.23 sleep has been disturbed since diagnosis with delayed ability to fall asleep and will wake several times for urination. Denies pruritis, jaundice, balance difficulty, confusion. Lactulose is being taken at night, continues to work during the day; stools are then loose and urgent and repeated. Stools may also be r/t diet. MELD? ChildPugh? plt? INR 05.11.22 10 ? --? 142? 1.4 09.05.06 9? A? --? 1.3 11.23.22 8? --? 182? 1.2 ROS Const Constitutional: No anorexia, fatigue, fever(s), weight change or sleep problems Eyes Eyes: No change in vision ENT ENT: No abnormal hearing, difficulty swallowing, mouth lesions, tongue swelling or throat swelling Resp Respiratory: No cough or shortness of breath Cardio Cardiology: No chest pain at rest, chest pain with exertion, shortness of breath or dyspnea on exertion Gastro GI: No difficulty swallowing Genitourinary Male: No difficulty urinating or burning urination Musc Musculoskeletal: No joint pain, joint swelling, muscle weakness or decreased muscle mass Skin Skin: No hair loss in leg, yellowing of the eye, itchy eyes, rash, skin ulcer or skin swelling Neuro Neurology: No abnormal hearing, abnormal movements, confusion, unsteady gait/balance or memory loss Psych Psychiatric: No anxiety, No confusion and No memory loss Endo Endocrine: No fatigue or weight change Aller/Imm Allergy/Immunologic: No itchy eyes, throat swelling or tongue swelling Gerhard/Lymp Hematologic/Lymphatic: No easy bleeding, easy bruising or enlarged lymph nodes Exam Const General: cooperative and comfortable Nutritional Appearance: average body habitus and well nourished [facility] Head: normal to inspection Ears: hearing grossly normal bilaterally Nose: external nose normal Face and sinus: normal facial exam Mouth: oral mucosae normal Throat: posterior oropharynx normal Eyes General: appearance normal, both eyes and all related structures Neck Neck: normal visual inspection Chest Chest palpation & inspection: normal inspection of the chest and normal palpation of entire chest wall Resp Effort & Inspection: normal respiratory effort Auscultation: Bilateral: Clear to Auscultation Cardio Palpation: normal PMI Rate: regular rate Rhythm: regular rhythm GI Inspection: normal to inspection Auscultation: normal bowel sounds Percussion: normal to percussion Palpation: no hepatosplenomegaly Skin General: no rashes or lesions noted Neuro General: patient alert Extrem General: normal to inspection Psych Affect: normal affect Quality Reporting Tobacco Screening ([facility] 138) Smoking Status: Never smoker Assessment and Plan Assessment and Plan (1) Cirrhosis: Status: Chronic Plan: Alcoholic cirrhosis with a current meld of 8. 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 His platelet count is 80,000, hemoglobin 10,000 with an MCV of 101, white blood cell count of 4.1, INR of 1.4, creatinine 0.8. He is not drinking any alcohol. He is not showing signs of decompensation via ascites, jaundice, encephalopathy or bleeding. We will recheck his labs and follow-up in approximately 4 months we will get alpha-fetoprotein, random alcohol level, and ammonia level. He will also need screening every 6 to 12 months for hepatocellular carcinoma with a right upper quadrant ultrasound and CT scanning of the abdomen pelvis. (2) Esophageal varices: Status: Chronic Plan: He will need to undergo an upper endoscopy for evaluation of his upper GI tract for esophageal varices. He has undergone banding in the past so it would be secondary to surveillance of his esophageal varices. He is is on beta-lori therapy also for his heart and blood pressure. Therefore I will not start him on any beta-lori therapy for his history of varices in esophagus. Orders: Orders Comprehensive Metabolic Profil Today I85.00 - Esophageal varices without bleeding, K74.60 - Unspecified cirrhosis of liver CRP Today I85.00 - Esophageal varices without bleeding, K74.60 - Unspecified cirrhosis of liver Hemoglobin A1c Today I85.00 - Esophageal varices without bleeding, K74.60 - Unspecified cirrhosis of liver Prothrombin Time w/INR Today I85.00 - Esophageal varices without bleeding, K74.60 - Unspecified cirrhosis of liver CBC W/Diff, Automated Today I85.00 - Esophageal varices without bleeding, K74.60 - Unspecified cirrhosis of liver AFP Tetra Quad Screen Today I85.00 - Esophageal varices without bleeding, K74.60 - Unspecified cirrhosis of liver Ammonia Today I85.00 - Esophageal varices without bleeding, K74.60 - Unspecified cirrhosis of liver (3) he will also undergo screening colonoscopy. He was explained alternatives, risk, benefits including outstanding bleeding, infection, sepsis, perforation, need for emergent surgery and . He will have an ASA of 3. I have examined the patient and the H&P has been reviewed. There are no clinical changes since date of exam.
--- NOTE | 2023-05-03 07:14 | OP.EGD_ITS ---
Patient Name: Kenny Whitten Procedure Date: 05/03/2023 6:20 AM Date of : 1970 Age: 53 Procedure: Upper GI endoscopy Indications: For therapy of esophageal varices Providers: Duncan Colon DO Referring MD: Duncan Colon DO Medicines: Monitored Anesthesia Care Patient Profile: This is a 53 year old male. Refer to note in patient chart for documentation of history and physical. Patient has symptoms of chronic nausea and chronic vomiting. Complications: No immediate complications. Procedure: Pre-Anesthesia Assessment: - Prior to the procedure, a History and Physical was performed, and patient medications and allergies were reviewed. The patient is competent. The risks and benefits of the procedure and the sedation options and risks were discussed with the patient. All questions were answered and informed consent was obtained. Patient identification and proposed procedure were verified by the physician. Mental Status Examination: normal. Prophylactic Antibiotics: The patient does not require prophylactic antibiotics. Prior Anticoagulants: The patient has taken no previous anticoagulant or antiplatelet agents. ASA Grade Assessment: III - A patient with severe systemic disease. After reviewing the risks and benefits, the patient was deemed in satisfactory condition to undergo the procedure. The anesthesia plan was to use monitored anesthesia care (MAC). Immediately prior to administration of medications, the patient was re-assessed for adequacy to receive sedatives. The heart rate, respiratory rate, oxygen saturations, blood pressure, adequacy of pulmonary ventilation, and response to care were monitored throughout the procedure. The physical status of the patient was re-assessed after the procedure. After obtaining informed consent, the endoscope was passed under direct vision. Throughout the procedure, the patient's blood pressure, pulse, and oxygen saturations were monitored continuously. The pediatric colonoscope was introduced through the mouth, and advanced to the second part of duodenum. The upper GI endoscopy was accomplished without difficulty. The patient tolerated the procedure well. Scope In: 6:40:09 AM Scope Out: 6:48:16 AM Total Procedure Duration Time 0 hours 8 minutes 7 seconds Findings: Grade III varices were found in the middle third of the esophagus and in the lower third of the esophagus. They were 20 mm in largest diameter. Four bands were successfully placed with incomplete eradication of varices. Bleeding had stopped at the end of the procedure. Moderate portal hypertensive gastropathy was found in the entire examined stomach. No gross lesions were noted in the first portion of the duodenum. Impression: - Grade III esophageal varices. Incompletely eradicated. Banded. - Portal hypertensive gastropathy. - No gross lesions in the first portion of the duodenum. - No specimens collected. Recommendation: - Discharge patient to home. - Full liquid diet today. - Continue present medications. Procedure Code(s): --- Professional --- 25429, Esophagogastroduodenoscopy, flexible, transoral; with band ligation of esophageal/gastric varices CPT copyright 2017 [employer]. All rights reserved. The codes documented in this report are preliminary and upon lock tender chief operator review may be revised to meet current compliance requirements. Duncan Colon DO 05/03/2023 7:13:44 AM This report has been signed electronically. Number of Addenda: 0 Note Initiated On: 05/03/2023 6:20 AM
--- NOTE | 2023-05-03 07:15 | OP.CCLET_ITS ---
05/03/2023 Earl Brandon [address] [facility] [place] [address] Re : Upper GI endoscopy procedure for Kenny Fish Dear Dr. Brandon This procedure was performed on Wednesday, May 03, 2023. My impressions and recommendations are as follows: Impressions : - Grade III esophageal varices. Incompletely eradicated. Banded. - Portal hypertensive gastropathy. - No gross lesions in the first portion of the duodenum. - No specimens collected. Recommendations : - Discharge patient to home. - Full liquid diet today. - Continue present medications. My findings are described in the full procedure note, which is enclosed. If I can be of further assistance, please feel free to contact me at . Sincerely, Duncan Colon, 05/03/2023 7:13:44 AM This report has been signed electronically.
--- NOTE | 2023-05-03 07:19 | OP.COLON_ITS ---
Patient Name: Kenny Whitten Procedure Date: 05/03/2023 6:49 AM Date of : 1970 Age: 53 Procedure: Colonoscopy Indications: Screening for colorectal malignant neoplasm Providers: Duncan Colon DO Referring MD: Duncan Colon DO Medicines: Monitored Anesthesia Care Patient Profile: This is a 53 year old male. Refer to note in patient chart for documentation of history and physical. Patient has symptoms of chronic nausea and chronic vomiting. Last Colonoscopy: none. The patient's first colonoscopy is today. Complications: No immediate complications. Procedure: Pre-Anesthesia Assessment: - Prior to the procedure, a History and Physical was performed, and patient medications and allergies were reviewed. The patient is competent. The risks and benefits of the procedure and the sedation options and risks were discussed with the patient. All questions were answered and informed consent was obtained. Patient identification and proposed procedure were verified by the physician. Mental Status Examination: normal. Prophylactic Antibiotics: The patient does not require prophylactic antibiotics. Prior Anticoagulants: The patient has taken no previous anticoagulant or antiplatelet agents. ASA Grade Assessment: III - A patient with severe systemic disease. After reviewing the risks and benefits, the patient was deemed in satisfactory condition to undergo the procedure. The anesthesia plan was to use monitored anesthesia care (MAC). Immediately prior to administration of medications, the patient was re-assessed for adequacy to receive sedatives. The heart rate, respiratory rate, oxygen saturations, blood pressure, adequacy of pulmonary ventilation, and response to care were monitored throughout the procedure. The physical status of the patient was re-assessed after the procedure. After I obtained informed consent, the scope was passed under direct vision. Throughout the procedure, the patient's blood pressure, pulse, and oxygen saturations were monitored continuously. The pediatric colonoscope was introduced through the anus and advanced to the cecum, identified by appendiceal orifice and ileocecal valve. The colonoscopy was performed without difficulty. The patient tolerated the procedure well. The quality of the bowel preparation was good. Scope In: 6:52:39 AM Scope Withdrawal Time 0 hours 8 minutes 27 seconds Scope Out: 7:06:05 AM Total Procedure Duration Time 0 hours 13 minutes 26 seconds Findings: The perianal and digital rectal examinations were normal. A few small and large-mouthed diverticula were found in the recto-sigmoid colon and sigmoid colon. The exam was otherwise without abnormality on direct and retroflexion views. Impression: - Diverticulosis in the recto-sigmoid colon and in the sigmoid colon. - The examination was otherwise normal on direct and retroflexion views. - No specimens collected. Recommendation: - Discharge patient to home. - Resume previous diet. - Continue present medications. - Repeat colonoscopy in 10 years for screening purposes. Procedure Code(s): --- Professional --- G0121, Colorectal cancer screening; colonoscopy on individual not meeting criteria for high risk CPT copyright 2017 [employer]. All rights reserved. The codes documented in this report are preliminary and upon surgical coder review may be revised to meet current compliance requirements. Duncan Colon DO 05/03/2023 7:19:14 AM This report has been signed electronically. Number of Addenda: 0 Note Initiated On: 05/03/2023 6:49 AM
--- NOTE | 2023-05-03 07:20 | OP.CCLET_ITS ---
05/03/2023 Earl Brandon [address] [place] [address] Re : Colonoscopy procedure for Kenny Fish Dear Dr. Brandon This procedure was performed on Wednesday, May 03, 2023. My impressions and recommendations are as follows: Impressions : - Diverticulosis in the recto-sigmoid colon and in the sigmoid colon. - The examination was otherwise normal on direct and retroflexion views. - No specimens collected. Recommendations : - Discharge patient to home. - Resume previous diet. - Continue present medications. - Repeat colonoscopy in 10 years for screening purposes. My findings are described in the full procedure note, which is enclosed. If I can be of further assistance, please feel free to contact me at . Sincerely, Duncan Colon, 05/03/2023 7:19:14 AM This report has been signed electronically.
[2023-05-03 07:45] LABS: Bedside Glucose 257 mg/dL (74-106)
== END 2023-05-03 07:55 | disposition home or self-care (01) ==
LOC: EN 05:23 → AC 05:24
PROVIDERS: PCP Family Medicine; Referring Provider Family Medicine; Visit Provider Internal Medicine Gastroenterology
PROC: 0DJD8ZZ Inspection of Lower Intestinal Tract, Via Natural or Artificial Opening Endoscopic (ICD-10-PCS; CPT 45378; principal; 2023-05-03 06:25)
DX: Z12.11 Encounter for screening for malignant neoplasm of colon (principal); I85.00 Esophageal varices without bleeding; K76.6 Portal hypertension; K70.30 Alcoholic cirrhosis of liver without ascites; K57.30 Diverticulosis of large intestine without perforation or abscess without bleeding; K31.89 Other diseases of stomach and duodenum; Z79.82 Long term (current) use of aspirin; Z79.84 Long term (current) use of oral hypoglycemic drugs; I10 Essential (primary) hypertension; Z79.899 Other long term (current) drug therapy; Z87.19 Personal history of other diseases of the digestive system
CPT/HCPCS: 45378; 43235; 82962; J7120; J2405

== ENCOUNTER → 2023-05-17 | Outpatient (CLI) | payer OTHER, SELFPAY ==
[2023-05-17 14:26] LABS: International Normalized Ratio 1.2; Prothrombin Time (Protime)PT. 14.8 SECONDS (11.7-14.9)
[2023-05-17 14:39] LABS: Erythrocyte Sedimentation Rate 21 mm/hr (0-20)
[2023-05-17 14:40] LABS: Absolute Lymphocyte Count 2.36 X10^3/uL (0.83-4.51); Absolute Neutrophil Count 2.2 X10^3/uL (2.0-7.7); Basophil# 0.05 X10^3/uL; Eosinophil# 0.12 X10^3/uL; Eosinophils% 2.3 % (0-5); Hematocrit 42.1 % (40-54); Hemoglobin 14.6 g/dL (13.0-16.5); Lymphocyte # 2.36 X10^3/ul (0.83-4.51); Mean Corp Hgb Conc 34.7 g/dL (32-36); Mean Corpuscular Hgb 30.9 pg (27.0-32.0); Mean Corpuscular Volume 89.2 fL (80-94); Mean Platelet Vol. 10.2 fl (6.2-12.0); Monocyte# 0.49 X10^3/uL; Monocyte% 9.3 % (0-10); NRBC Flagged by Analyzer 0 % (0-5); Neutrophil # 2.22 X10^3/uL (2.7-7.7); Neutrophil % 42.2 % (47-70); Platelet Count 164 K/mm3 (150-450); RBC Distribution Width CV 11.9 % (11.6-14.6); RBC Distribution Width SD 39.2 fl (35.1-43.9); Red Blood Count 4.72 M/mm3 (4.6-6.2); White Blood Count 5.3 K/mm3 (4.4-11.0)
[2023-05-17 14:48] LABS: ALB/GLOB Ratio 0.8 RATIO (0.9-2.4); AST(SGOT) 20 U/L (15-37); Alanine Aminotransfer ALT/SGPT 38 U/L (16-61); Albumin, Serum 3.7 g/dL (3.2-5.0); Alkaline Phosphatase 110 U/L (45-117); Anion Gap 4 (5-15); BUN 9 mg/dL (7-18); BUN/Creat Ratio 10.6 RATIO (10-20); CRP < 2.90 mg/L (0.0-3.0); Chloride 99 mmol/L (98-107); Creatinine, Serum 0.85 mg/dL (0.70-1.30); EST Glomerular Filtration Rate 100 mL/min (>60); Est Glom Filt Rate - Afr Amer 121 mL/min (>60); Globulin 4.9 g/dL (2.2-4.2); Glucose 210 mg/dL (74-106); LDH 158 U/L (87-241); Protein, Total 8.6 g/dL (6.4-8.2); Sodium Level 132 mmol/L (136-145)
== END | disposition home or self-care (01) ==
PROVIDERS: PCP Family Medicine; Referring Provider Internal Medicine Gastroenterology; Visit Provider Internal Medicine Gastroenterology
DX: K74.60 Unspecified cirrhosis of liver (principal); I85.00 Esophageal varices without bleeding
CPT/HCPCS: 36415; 80053; 82140; 83615; 85025; 85610; 85652; 86140

== ENCOUNTER → 2023-05-30 | Outpatient (CLI) | payer OTHER, SELFPAY ==
--- NOTE | 2023-05-30 09:55 | US_ITS ---
STUDY: ABDOMINAL ULTRASOUND - RIGHT UPPER QUADRANT; ELASTOGRAPHY REASON FOR VISIT: Male, 53 years old. Cirrhosis. Fatty infiltration of the liver. TECHNIQUE: Ultrasound evaluation of the right upper quadrant was performed with real-time and static ford-scale imaging. Point quantification shear wave elastography was performed (Mailgun). TECHNICAL QUALITY: Adequate. COMPARISON: None. FINDINGS: Liver: The liver measures 15.3 cm. There is increased echogenicity consistent with fatty infiltration. The bile ducts are within normal limits. There is hepatic color flow. The direction of portal flow is hepatopetal. There is no demonstrated mass lesion. Median liver stiffness measured 21 kPa. Gallbladder: Normal distended gallbladder. The gallbladder wall measures 2.2 mm. There is a negative sonographic Ghosh''s sign. There is no pericholecystic fluid. There are multiple echogenic structures within the gallbladder, consistent with multiple gallstones. Common Bile Duct (C.B.D.): The common bile duct measures 3.1 mm. Pancreas: There is normal echogenicity of the visualized pancreas. There is no demonstrated pancreatic mass or cyst. Right Kidney: Normal size of the right kidney. The right kidney measures 12.2 cm x 6 x 6.8 cm. Normal renal cortex. The right cortex measures 2.1 cm. There is no demonstrated renal mass or cyst. There is no right hydronephrosis. US/ABD Limited w/ Elastography IMPRESSION: 1. Liver stiffness measures 21 kPa compatible with F3-F4 (Moderate to severe liver fibrosis) Metavir score. 2. Multiple gallstones. 3. Fatty infiltration of the liver. Electronically Signed: Amish Whitman MD at 9:34 EDT ,
== END | disposition home or self-care (01) ==
PROVIDERS: PCP Family Medicine; Referring Provider Internal Medicine Gastroenterology; Visit Provider Internal Medicine Gastroenterology
DX: K74.60 Unspecified cirrhosis of liver (principal)
CPT/HCPCS: 76705; 76981

== ENCOUNTER → 2023-11-01 | Outpatient (CLI) | payer OTHER, SELFPAY ==
--- OUTSIDE RECORDS SUMMARY | 2023-11-01 12:30 | XMS RPT_ITS | CCD ---
Author Name Unknown Address [facility] [id number] [place] [address] Organization [employer] Results Test Name Value Interpretation Reference Range Facil ity Progress note 12-23-2020 Note Date & Type Note Facility 12-23-2020 Note HNO ID: [id number] Author: Domonique Rhodes (Pa) Service: ? Author Type: Physician Laboratory Sample Carrier Type: Progress Notes Filed: 12/23/2020 12:24 PM Note Text: This note was created using [employer]. Subjective David Whitten is a 50 year old male. HPI Patient presents with right knee pain and redness over the past 3 days. He thought maybe he was bit by something. The redness got worse sitting he noticed some swelling so he came in for evaluation. No fever or chills. He denies a history of cellulitis or MRSA. He does have a history of a DVT 10 years ago. He states he has a blood clotting disorder but is not sure what. He does take an aspirin a day. Chest pain or shortness of breath. No recent travel or injury to the leg. Review of Systems Musculoskeletal: Right knee redness and swelling All other systems reviewed and are negative. No past medical history on file. Current Outpatient Medications Medication Sig Dispense Refill - metoprolol tartrate, short acting, (LOPRESSOR) 50 mg tablet Take 50 mg by mouth twice daily with meals. - aspirin, enteric coated (ASPIRIN, ENTERIC COATED) 81 mg EC tablet Take 81 mg by mouth once daily. - sulfamethoxazole-trimethoprim (BACTRIM DS) 800-160 mg per tablet Take 1 tablet by mouth twice daily for 10 days. 20 tablet 0 - cephALEXin (KEFLEX) 500 mg capsule Take 1 capsule by mouth three times daily for 10 days. 30 capsule 0 No current facility-administered medications for this visit. No past surgical history on file. No family history on file. Social History Tobacco Use - Smoking status: Never Smoker - Smokeless tobacco: Current User Substance Use Topics - Alcohol use: Not on file - Drug use: Not on file Objective BP 138/88 Pulse 85 Temp 37.1 ?C (98.8 ?F) (Left Tympanic) Resp 16 Wt 82.9 kg (182 lb 12.8 oz) Physical Exam Vitals reviewed. Constitutional: Appearance: Normal appearance. HENT: Head: Normocephalic and atraumatic. Musculoskeletal: Legs: Comments: She has a central dark circular erythema with induration over the medial proximal knee area with some surrounding erythema. No lymphangitic streaking. No sign of a septic joint. No abscess palpated. Skin: General: Skin is warm and dry. Neurological: General: No focal deficit present. Mental Status: He is alert. Assessment and Plan ASSESSMENT/PLAN: 1. Right leg swelling - ICD9: 729.81, ICD10: M79.89 Feel he likely has cellulitis. Patient concerned because he has had a DVT before and has a clotting disorder. I did order an ultrasound and he will have that done today. I will treat with Bactrim and Keflex. Recommended he call his primary doctor to follow-up in the next 2 to 3 days. - US DVT LOWER RT Domonique Rhodes PA-C [facility] Summary Purpose Family History No Family History Records Found Advance Directives No Advanced Directives Records Found Additional Source Comments (unrecognized sect ion and content) No Status Records Found INFORMATION SOURCE (unrecogn ized section and content) FOR RECORDS PERTAINING TO PATIENTS WHO ARE OR HAVE BEEN ENROLLED IN A CHEMICAL DEPENDENCY/SUBSTANCEABUSE PROGRAM, SOME INFORMATION MAY BE OMITTED. This clinical summary was aggregated from multiple sources. Caution should be exercised in using it in the provision of clinical care. This summary normalizes information from multiple sources, and as a consequence, information in this document may materially change the coding, format and clinical context of patient data. In addition, data may be omitted in some cases. CLINICAL DECISIONS SHOULD BE BASED ON THE PRIMARY CLINICAL RECORDS. [employer] provides no warranty or guarantee of the accuracy or completeness of information in this document.
[2023-11-01 13:02] LABS: Absolute Lymphocyte Count 2.62 X10^3/uL (0.83-4.51); Absolute Neutrophil Count 2.4 X10^3/uL (2.0-7.7); Basophil# 0.06 X10^3/uL; Eosinophil# 0.13 X10^3/uL; Eosinophils% 2.2 % (0-5); Hematocrit 45.3 % (40-54); Hemoglobin 15.5 g/dL (13.0-16.5); Lymphocyte # 2.62 X10^3/ul (0.83-4.51); Lymphocyte % 44.3 % (19-41); Mean Corp Hgb Conc 34.2 g/dL (32-36); Mean Corpuscular Hgb 30.3 pg (27.0-32.0); Mean Corpuscular Volume 88.5 fL (80-94); Monocyte# 0.74 X10^3/uL; Monocyte% 12.5 % (0-10); NRBC Flagged by Analyzer 0 % (0-5); Neutrophil # 2.36 X10^3/uL (2.7-7.7); Neutrophil % 39.8 % (47-70); Platelet Count 146 K/mm3 (150-450); RBC Distribution Width SD 38.9 fl (35.1-43.9); Red Blood Count 5.12 M/mm3 (4.6-6.2); White Blood Count 5.9 K/mm3 (4.4-11.0)
[2023-11-01 13:19] LABS: International Normalized Ratio 1.2; Prothrombin Time (Protime)PT. 15.7 SECONDS (11.7-14.9)
[2023-11-01 13:23] LABS: ALB/GLOB Ratio 0.8 RATIO (0.9-2.4); AST(SGOT) 27 U/L (15-37); Alanine Aminotransfer ALT/SGPT 42 U/L (16-61); Albumin, Serum 3.8 g/dL (3.2-5.0); Alkaline Phosphatase 93 U/L (45-117); Anion Gap 4 (5-15); BUN 7 mg/dL (7-18); BUN/Creat Ratio 9.2 RATIO (10-20); Chloride 100 mmol/L (98-107); Creatinine, Serum 0.76 mg/dL (0.70-1.30); EST Glomerular Filtration Rate 113 mL/min (>60); Est Glom Filt Rate - Afr Amer 137 mL/min (>60); GGTP 58 U/L (15-85); Globulin 4.7 g/dL (2.2-4.2); Glucose 121 mg/dL (74-106); Protein, Total 8.5 g/dL (6.4-8.2); Sodium Level 134 mmol/L (136-145)
[2023-11-01 13:35] LABS: Hemoglobin A1c 7.6 % (3.8-5.6)
[2023-11-03 08:11] LABS: AFP, Tumor Marker 4.8 ng/mL (0.0-8.4)
== END | disposition home or self-care (01) ==
LOC: LAB 12:25
PROVIDERS: PCP Family Medicine; Referring Provider Internal Medicine; Visit Provider Internal Medicine
DX: K74.60 Unspecified cirrhosis of liver (principal); I85.00 Esophageal varices without bleeding
CPT/HCPCS: 36415; 80053; 82105; 82977; 83036; 85025; 85610

== ENCOUNTER → 2024-02-13 | Outpatient (CLI) | payer OTHER, SELFPAY ==
--- NOTE | 2024-02-13 08:34 | CT_ITS ---
STUDY: CT ABDOMEN AND PELVIS WITH AND WITHOUT CONTRAST REASON FOR EXAM: Male, 53 years old. HCC screening, Alcoholic cirrhosis -- Triple phase, HCC protocol. after Cr blood test RADIATION DOSAGE (If Supplied By Facility): CTDIvol = ( 17.5 ) mGy, DLP = ( 1771.36 ) mGycm TECHNIQUE: Transaxial images were obtained from the dome of the diaphragm to the symphysis pubis with oral contrast. Oral and amp; IV Readi-CAT and amp; 100mL Isovue-300 was administered. Sagittal and coronal images were reconstructed. Individualized dose optimization techniques were used for this CT. COMPARISON: Comparison is made with prior study dated May 01, 2022. FINDINGS: The visualized lung bases are unremarkable. Coronary artery calcification. There is decreased attenuation of the liver consistent with steatosis. There are multiple small gallstones. Minimal degree of pericholecystic fluid. Normal spleen. A suspected small varices in the region of the splenic hilum. Normal pancreas. Normal bilateral adrenal glands. Normal right kidney. Normal left kidney. Normal visualized stomach. Normal small intestine. There are multiple colonic diverticula consistent with diverticulosis. The appendix is visualized and appears normal. There is scattered atherosclerotic calcification of the abdominal aorta, without a demonstrated aneurysm. Normal inferior vena cava. There is a small retroperitoneal lymphadenopathy with enlarged nodes no greater than 10mm in the short axis diameter. Distended urinary bladder. There is a small umbilical hernia containing fat. Normal osseous structures. CT/CT Abd/Pelvis W/WO Contrast IMPRESSION: Fatty infiltration of the liver. Small gallstones with minimal amount of pericholecystic fluid. Distended urinary bladder. Sigmoid diverticulosis. Electronically Signed: Amish Whitman MD at 14:03 EDT ,
[2024-02-13 09:02] LABS: CREATININE FINGERSTICK < 1.0 mg/dL (0.70-1.30); EGFR FINGERSTICK > 60.0000 mL/min (>60)
== END | disposition home or self-care (01) ==
PROVIDERS: PCP Family Medicine; Referring Provider Internal Medicine; Visit Provider Internal Medicine
DX: I85.00 Esophageal varices without bleeding (principal); K74.60 Unspecified cirrhosis of liver
CPT/HCPCS: 74178; Q9967

== ENCOUNTER → 2024-02-17 | Outpatient (CLI) | payer OTHER, SELFPAY ==
[2024-02-17 08:08] LABS: Absolute Neutrophil Count 2.9 X10^3/uL (2.0-7.7); Basophil# 0.06 X10^3/uL; Eosinophil# 0.19 X10^3/uL; Eosinophils% 3.1 % (0-5); Hemoglobin 15.3 g/dL (13.0-16.5); Lymphocyte % 37.3 % (19-41); Mean Corpuscular Hgb 30.5 pg (27.0-32.0); Mean Corpuscular Volume 89.6 fL (80-94); Mean Platelet Vol. 10.2 fl (6.2-12.0); Monocyte# 0.67 X10^3/uL; Monocyte% 10.9 % (0-10); NRBC Flagged by Analyzer 0 % (0-5); Neutrophil # 2.92 X10^3/uL (2.7-7.7); Neutrophil % 47.4 % (47-70); Platelet Count 150 K/mm3 (150-450); RBC Distribution Width CV 11.8 % (11.6-14.6); RBC Distribution Width SD 38.4 fl (35.1-43.9); Red Blood Count 5.02 M/mm3 (4.6-6.2); White Blood Count 6.2 K/mm3 (4.4-11.0)
[2024-02-17 08:49] LABS: International Normalized Ratio 1.2; Prothrombin Time (Protime)PT. 15.4 SECONDS (11.7-14.9)
[2024-02-17 09:13] LABS: ALB/GLOB Ratio 0.9 RATIO (0.9-2.4); AST(SGOT) 21 U/L (15-37); Alanine Aminotransfer ALT/SGPT 32 U/L (16-61); Albumin, Serum 3.7 g/dL (3.2-5.0); Alkaline Phosphatase 82 U/L (45-117); Anion Gap 3 (5-15); BUN 13 mg/dL (7-18); BUN/Creat Ratio 14.5 RATIO (10-20); Calcium,Total 9.2 mg/dL (8.5-10.1); Chloride 100 mmol/L (98-107); Cholesterol 213 mg/dL (200); EST Glomerular Filtration Rate 93 mL/min (>60); Est Glom Filt Rate - Afr Amer 113 mL/min (>60); Globulin 4.3 g/dL (2.2-4.2); Glucose 178 mg/dL (74-106); High Density Lipoprotein 32 mg/dL; Potassium 4.3 mmol/L (3.5-5.1); Sodium Level 132 mmol/L (136-145); Triglycerides 269 mg/dL; Very Low Density Lipoprotein 54 mg/dL (5-40)
== END | disposition home or self-care (01) ==
LOC: LAB 07:49
PROVIDERS: PCP Family Medicine; Referring Provider Internal Medicine; Visit Provider Internal Medicine
DX: I85.00 Esophageal varices without bleeding (principal); K74.60 Unspecified cirrhosis of liver
CPT/HCPCS: 36415; 80053; 80061; 85025; 85610

== ENCOUNTER 2024-06-13 07:47 | Day surgery (SDC) | payer OTHER, SELFPAY ==
[2024-06-13] VITALS (7 sets, daily range): BP systolic 112–152; BP diastolic 73–81; PULSE 70–82; RESP 16; TEMP 36–36.3; O2SAT 96–100; BMI 26.9
--- NOTE | 2024-06-13 08:07 | PRE.ANES_ITS ---
ASA Classification* ASA Classification ASA Classification: 3 Assessment & Plan Anesthesia* Anesthesia Assessment Anesthesia Assessment: Discussed sedation and/or anesthesia options, risks, benefits, and alternatives with patient/parents/legal guardian/POA. Questions invited. The patient/parents/legal guardian/POA seems to understand and agrees to proceed with anesthesia plan. Reviewed the physical assessment, medical history, allergy history and patient home medications list prior to surgery/procedure/anesthetic and documented any changes. Performed airway and anesthesia risk assessments. Anesthesia Type Anesthesia Type: MAC Anesthesia Focused Assessment* Airway Assessment Mouth opens: >3 cm Mallampati Score: II Focused Labs Anesthesia Preop lab: CBC WBC 6.2 K/mm3 (4.4-11.0) 02/17/24 07:57 RBC 5.02 M/mm3 (4.6-6.2) 02/17/24 07:57 Hgb 15.3 g/dL (13.0-16.5) 02/17/24 07:57 Hct 45.0 % (40-54) 02/17/24 07:57 Plt Count 150 K/mm3 (150-450) 02/17/24 07:57 CHEMISTRY Potassium 4.3 mmol/L (3.5-5.1) 02/17/24 07:57 Sodium 132 mmol/L (136-145) L 02/17/24 07:57 Magnesium 1.6 mg/dL (1.6-2.6) 05/01/22 23:10 Phosphorus 2.4 mg/dL (2.5-4.9) L 05/01/22 23:10 BUN 13 mg/dL (7-18) 02/17/24 07:57 Creatinine 0.90 mg/dL (0.70-1.30) 02/17/24 07:57 Glucose 178 mg/dL (74-106) H 02/17/24 07:57 POC Glucose 257 mg/dL (74-106) H 05/03/23 05:44 COAG PT 15.4 SECONDS (11.7-14.9) H 02/17/24 07:57 Pre-Assessment Diagnosis/Proposed Procedure Planned Operative Procedure(s): EGD Anesthesia History 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 When Was Last Pacemaker Check QUESTION #4 FULL TEXT: You/Your Family Experience fever (hyperthermia) with Anesthesia Last Oral Intake Last Oral intake: Last Oral Intake NPO since Meds taken in AM with sips of water? Meds patient instructed to take am of surgery PONV PONV - production utility worker: PONV - production utility worker Female No 06/11/24 13:37 HX of Motion Sickness No 06/11/24 13:37 HX of N/V After Surgery No 06/11/24 13:37 Non-Smoker No 06/11/24 13:37 Duration of Surgery greater No 06/11/24 13:37 than 60 minutes Number of Risk Factors PONV Score Height & Weight Height & Weight: Anesthesia: Height & Weight Height 5 ft 7 in 11/03/23 09:52 Respiratory Assessment Respiratory Assessment - production utility worker: Respiratory Tract Infection Hx - production utility worker Hx Respiratory Tract Infection No 06/11/24 13:37 STOP Sleep Apnea STOP Sleep Apnea - production utility worker: STOP Sleep Apnea - production utility worker Hx Hypertension Yes: CONTROLLED WITH MED 06/11/24 13:37 Hx Sleep Apnea No 06/11/24 13:37 CPAP BIPAP Do you snore loudly (louder No 06/11/24 13:37 than talking or can be heard Do you often feel tired/ No 06/11/24 13:37 fatigued/ sleepy during daytime? Has anyone observed you stop No 06/11/24 13:37 breathing during sleep? STOP Results Negative 06/11/24 13:37 QUESTION #5 FULL TEXT : Do you snore loudly (louder than talking or can be heard through closed doors)? Tobacco Use History Tobacco Use History - production utility worker: Tobacco Use History - production utility worker Tobacco Use Smoking Status Current every day smoker 06/11/24 13:37 Hx Tobacco Use Yes 06/11/24 13:37 Years Smoking Packs Smoked per Day Smoking Cessation Date was within the last 15 years Hx Smoking Cessation Date Hx Smoking Cessation Counseling Hematologic Medial History Hematologic Hx - production utility worker: Hematologic Medical Hx - occupational health physiotherapist Hx of Blood Transfusion No 06/11/24 13:37 Hx of Transfusion in last 3 No 06/11/24 13:37 Months Date of Last Transfusion (if within last 3 months) Ever experience any problems No 06/11/24 13:37 with transfusion(s)? Specify any problems Hx of Preganancy in last 3 N/A 06/11/24 13:37 Months Nurse Filling Out Transfusion VCHRISTIN 06/11/24 13:37 & Questions: Date: 06/11/24 06/11/24 13:37 Time: 13:38 06/11/24 13:37 Patient unable to answer at this time (ie. confused, unrespo /Reproduction History /Reproductive History - production utility worker: /Reproductive Hx- production utility worker Hx Now Gestational Age (in weeks): EDC: Hx Hx Para Hx Section SAB No 06/11/24 13:37 Active Medications Active Medications: Current Medications Generic Name Dose Route Start Last Admin Trade Name Freq PRN Reason Stop Dose Admin Lactated Ringer's 1,000 mls @ 15 mls/hr 06/13/24 08:00 IV .Q48H FRANNY PFSH Medical History Cirrhosis Wears glasses Low iron Fatty liver Dietary restriction History of GI bleed Chewing tobacco use Leg cramps History of edema Iron deficiency anemia Alcohol abuse History of venous thromboembolism Diabetes mellitus, type 2 HTN (hypertension) Home Medications ?Medication ?Instructions ?Recorded ?Last Taken ?Type aspirin 81 mg tablet,delayed 81 mg PO DAILY 05/01/22 04/30/23 History release ferrous sulfate 325 mg (65 mg 325 mg PO DAILY 05/01/23 05/01/23 History iron) tablet metformin 1,000 mg tablet 1,000 mg PO BID 05/01/23 Unknown History lactulose 20 gram/30 mL oral 20 g (30 mL) PO DAILY #3,000 mL 10/02/23 Unknown Rx solution carvedilol 12.5 mg tablet 12.5 mg PO BID 1 month #60 tabs 11/03/23 Unknown Rx rosuvastatin 10 mg tablet 10 mg PO DAILY 1 month #30 tabs 02/20/24 Unknown Rx ursodiol 250 mg tablet 250 mg PO BID #60 TABLETS 06/08/24 Unknown Rx semaglutide 0.25 mg or 0.5 mg (2 0.5 mg subcut DAILY 06/11/24 Unknown History mg/3 mL) subcutaneous pen injector (Ozempic) Allergy/AdvReac Type Severity Reaction Status Date / Time No Known Allergies Allergy Verified 06/11/24 13:29 Family History Mother Cancer CLL Father Colon cancer Diagnosed age 49, passed ~ 10 years later. Surgical History (Updated 06/11/24 @ 13:37 by Rylee Sparrow) Hx of colonoscopy History of esophagogastroduodenoscopy (EGD) S/P tonsillectomy and adenoidectomy Social History household members: none Smoking Status: Current every day smoker tobacco type: smokeless tobacco alcohol intake: current alcohol intake frequency: 3 or more drinks per day details: several years-decades intake, current 12 beers/day. substance use type: does not use Review of Systems (Anesthesia) ROS Narrative System reviewed and no additional complaints, except as documented.
[2024-06-13] MEDS: Lactated Ringers 1,000 ML 15 ML IV (08:36)
--- NOTE | 2024-06-13 09:02 | PCM.HP.BLA ---
History and Physical Date of Admission: 06/13/24 vomiting blood Details: DAVID THOMPSON, is a 54 M who presents to the office today for [facility] hospitalization 05.01.22-05.03.22. [facility] ED with multiple bloody emesis and one loose dark stool in the setting of anticoagulation with baby aspirin. Consumes 12 beers a day with cirrhosis seen on CT scan raising concern for esophageal varices; hemoglobin 7.3. He was admitted and GI consulted same day for cirrhosis and blood loss/iron deficiency anemia; EGD performed same day with bleeding varices, banded. CT abd/pel 05.01.22 with nodular liver contour suggestive of cirrhosis, slight ascites; cholelithiasis; sigmoid diverticulosis; possible small varices in gastrohepatic ligament; borderline sized gastrohepatic and paraesophageal lymph nodes. EGD 05.02.22 Bleeding grade II esophageal varices, banded; portal hypertensive gastropathy. No specimens collected. OV 06.22.22 without sleep disturbance, confusion, balance issues, pruritis, jaundice. Historic use of 12 alcoholic drinks/day; none since hospitalization. BM with increased flatulence 3-4/morning and 2-3/evening with continued lactulose and pattern interrupts lifestyle. Contact 06.23.22 to report he is currently taking Metformin; previously took gabapentin. OV 09.09.22 Feels he is doing well overall. Sleep pattern is disturbed, will wake after an hour and be awake for several hours; often has to urinate when this happens. Feels he is doing well overall without balance issues, brain fog, confusion, difficulty doing ADL. May have a mild yellow tinge to skin today. Lactulose and Xifaxan scripts ended late June/early July. Lactulose restarted, ursodiol started. OV 01.04.23 sleep has been disturbed since diagnosis with delayed ability to fall asleep and will wake several times for urination. Denies pruritis, jaundice, balance difficulty, confusion. Lactulose is being taken at night, continues to work during the day; stools are then loose and urgent and repeated. Stools may also be r/t diet. OV 8.12.08 continues to have sleep/wake cycle disturbance; denies confusion, brain fog, jaundice, pruritis. Would like to know if he should continue ursodiol, script ended. MELD ChildPugh plt INR AFP 05.11.22 10 -- 142 1.4 -- 09.. 9 A -- 1.3 -- 11.. 8 -- 182 1.2 -- .08.07 -- -- -- -- 5.2 08.. 8 A 164 1.2 -- .. 8 A 146 1.2 4.8 05.. 8 A 150 1.2 OV 08.11.23 Pt stable since last visit. Continues to take Lactulose once a day. Has one liquid BM after. Denies weakness, confusion, brain fog. Still some issues sleeping. Feels like Lactulose makes him dehydrated so he has to drink more and then get up to go to the bathroom. He had just seen PCP about 1 to 2 weeks ago for bloating. He added 1 medication for diabetes and given antibiotic which the patient does not remember name. BP is elevated. OV 1..- Pt doing well since last visit. Denies abdominal pain, dizziness, confusion, swelling. Reports 1-2 loose stools a day following lactulose. CT abd/pel triple phase 02.13.24- Fatty infiltration of liver, small gallstones, distended urinary bladder, sigmoid diverticulosis OV 02.20.24 Pt having diarrhea every day since starting Lactulose. Wakes up in the night a lot. R leg has swelling due to blood clot. Has a rash behind L knee. Taking Ursodiol. MELD 8. ROS Const Constitutional: No fatigue, fever(s) or weight change ENT ENT: No difficulty swallowing Gastro GI: No abdominal pain, belching, bloating, change in bowel habits, change in stool character, coffee ground emesis, constipation, cramping, diarrhea, heartburn, difficulty swallowing, feeling full early, excessive flatus, incontinent of stools, Vomiting blood/hematemesis, Blood in stool, loose stools, Black,tarry stools, nausea/dyspepsia, pain with swallowing, vomiting or other Musc Musculoskeletal: No joint pain Skin Skin: Positive for rash; No yellowing of the eye or itchy eyes Psych Psychiatric: No anxiety and No depression Endo Endocrine: No fatigue or weight change Aller/Imm Allergy/Immunologic: No itchy eyes Gerhard/Lymp Hematologic/Lymphatic: No easy bleeding or easy bruising Exam Const General: cooperative, no acute distress and well developed Nutritional Appearance: overweight Orientation: alert, awake and oriented x3 [facility] Head: normocephalic and atraumatic Nose: external nose normal Face and sinus: normal facial exam Mouth: moist mucous membranes Eyes Pupils: PERRL EOM: EOM intact bilaterally Neck Neck: normal visual inspection, no meningeal signs and trachea midline Carotids: no bruits Chest Chest palpation & inspection: normal inspection of the chest Resp Effort & Inspection: normal respiratory effort and symmetric chest movement Auscultation: Bilateral: Clear to Auscultation Cardio Palpation: normal PMI Rate: regular rate Rhythm: regular rhythm Heart Sounds: S1 normal and S2 normal GI Auscultation: normal bowel sounds Percussion: normal to percussion Palpation: soft, no hepatosplenomegaly and no guarding Other: Mild fat abdomen. No clinically palpable ascites, shifting dullness/fluid thrill negative. General: bimanual renal exam normal bilaterally, bladder normal to inspection and bladder normal to palpation Musc Musculoskeletal: No joint tenderness, joint redness, joint warmth or decreased range of motion Thoracic/Lumbar Spine: thor and lumb spine abnorm to inspection Skin General: no rashes or lesions noted, turgor normal and no erythema Wounds: wound noted Other: Rash noted in left popliteal region intertriginous area probably from sitting. Mild itching/pruritus present Neuro General: patient alert, patient awake, patient oriented x3 and no focal motor deficits Speech: speech normal Motor: muscle tone normal throughout Extrem General: normal exam except as noted Other: No pitting pedal edema Psych Appearance: grossly normal Mood: congruent mood Affect: normal affect Attitude: cooperative Assessment and Plan Assessment and Plan (1) Cirrhosis: Status: Chronic Qualifiers: Hepatic cirrhosis type: alcoholic cirrhosis Ascites presence: without ascites Qualified Code(s): K70.30 - Alcoholic cirrhosis of liver without ascites Plan: Alcoholic cirrhosis with MELD sodium score 10. 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 Compensated. A1c 7.6%. Glucose level is elevated. Patient is not drinking alcohol since after last hospital admission in April 2022 when he was admitted for acute upper GI bleed complicating into acute blood loss anemia. The patient denies any confusion. He is taking lactulose but avoids during work. He works as sedentary in construction job. Liver ultrasound reviewed. Liver stiffness 21 kPa compatible with F3 to F4 moderate to severe liver fibrosis. Multiple gallstones similar to previous CT finding of April 2022 during last admission. Fatty infiltration. CT abdomen triple phase reviewed with the patient. Shows steatosis with multiple gallstones but no features of acute or status. No RUQ tenderness. No mention about liver mass in the report but I do not see any liver mass and arterial or venous change. His blood pressure is always elevated when he came in but after sitting down for 15 minutes, his blood pressure is 151/99. Cholesterol level is high, triglyceride 269, total cholesterol 213. Last AFP 4.8 in October 2023. Prescription was given for rosuvastatin 10 mg daily. Repeat fasting lipid profile after 3 months on rosuvastatin. Patient is seen he was also started on Ozempic by PCP reece he told me 2.5 mg q. weekly about 2 weeks ago. Educated about the dose that has to be titrated up every month till goal body weight, glucose control blood pressure control is achieved. Patient not candidate for pioglitazone as he also has weight gain on glipizide 5 mg therefore will decrease to 2.5 mg daily. (2) Esophageal varices: Status: Chronic Qualifiers: Esophageal varices type: secondary Esophageal varices bleeding: without bleeding Qualified Code(s): I85.10 - Secondary esophageal varices without bleeding Plan: EGD done in 05/03/23 reported grade 3 esophageal varices incompletely eradicated, banded. PHG. No gross lesions in first portion of duodenum. Colonoscopy shows diverticulosis and RS colon and sigmoid colon. Otherwise exam normal. Rest as mentioned above for better control of hypertension and diabetes. Continue PPI EGD in about 3 months. Follow-up in 3 months. Orders: Orders Lipid Profile Today I85.00 - Esophageal varices without bleeding, K74.60 - Unspecified cirrhosis of liver Prothrombin Time w/INR Today I85.00 - Esophageal varices without bleeding, K74.60 - Unspecified cirrhosis of liver Comprehensive Metabolic Profil Today I85.00 - Esophageal varices without bleeding, K74.60 - Unspecified cirrhosis of liver CBC W/Diff, Automated Today I85.00 - Esophageal varices without bleeding, K74.60 - Unspecified cirrhosis of liver Hemoglobin A1c Today I85.00 - Esophageal varices without bleeding, K74.60 - Unspecified cirrhosis of liver Vitamin D,25 Hydroxy Today I85.00 - Esophageal varices without bleeding, K74.60 - Unspecified cirrhosis of liver Medications: New rosuvastatin 10 mg PO DAILY 30 tabs 5RF 1 month Coding Level of Care Code Established Pt Off vis,est,level 4 Patient Type Established History Detailed Exam Detailed Medical Decision Making Moderate Complexity Diagnoses Alcoholic cirrhosis of liver without ascites K70.30 Hepatic cirrhosis type: alcoholic cirrhosis Ascites presence: without ascites Secondary esophageal varices without bleeding I85.10 Esophageal varices type: secondary Esophageal varices bleeding: without bleeding I have examined the patient and the H&P has been reviewed. There are no clinical changes since date of exam.
--- NOTE | 2024-06-13 09:17 | PCM.POST.ANE ---
Anesthesia: Postop Eval I Current Vital Signs Temperature: 97 F Pulse Rate: 79 Blood Pressure: 112/73 Respiratory Rate: 16 Pulse Ox: 96 Oxygen Delivery Method: Room Air Assessment Airway patent: Yes Spontaneous unlabored respirations: Yes Mental status: Awake and Calm nausea: No Vomiting: No Anesthesia Complication: No Fluid Hydration Crystalloid volume administer (ml): 500 Total IV fluid infused: 500 Progress Note Anesthesia document: Postop Eval 1 completed: Yes
[2024-06-13 09:18] LABS: Bedside Glucose 179 mg/dL (74-106)
--- NOTE | 2024-06-13 09:18 | POSTOPAN2_ITS ---
Anesthesia Postop Eval I Sum Postop Eval Completion status Anesthesia document: Postop Eval 1 completed: Yes Anesthesia Postop Eval I Summary Anesthesia Postop Eval I Summary: Anesthesia Postop Eval I: Assessment Summary Airway patent Yes 06/13/24 09:18 COMMUNICATIONS [email or web address] Spontaneous unlabored Yes 06/13/24 09:18 COMMUNICATIONS PROGRAMMER.MDOT respirations Mental status Awake,Calm 06/13/24 09:18 COMMUNICATIONS PROGRAMMER.MDOT nausea No 06/13/24 09:18 COMMUNICATIONS PROGRAMMER.MDOT Vomiting No 06/13/24 09:18 COMMUNICATIONS PROGRAMMER.MDOT Anesthesia Postop Eval I: Fluid Summary Crystalloid volume administer 500 06/13/24 09:18 COMMUNICATIONS PROGRAMMER.MDOT (ml) Colloids volume administered ( ml) Blood Product volume administered (ml) Total IV fluid infused 500 06/13/24 09:18 COMMUNICATIONS PROGRAMMER.OT Anesthesia Postop Eval I: Summary Notes Anesthesia Complication No 06/13/24 09:18 COMMUNICATIONS PROGRAMMER.MDOT Anesthesia Complication Comment: Post-operative progress note Anesthesia: Postop Eval II Evaluation Mental status: Awake and Calm Pain Level: 0 nausea: No Vomiting: No Complications Anesthesia Complication: No
--- NOTE | 2024-06-13 09:18 | PCM.POSTANE2 ---
Anesthesia Postop Eval I Sum Postop Eval Completion status Anesthesia document: Postop Eval 1 completed: Yes Anesthesia Postop Eval I Summary Anesthesia Postop Eval I Summary: Anesthesia Postop Eval I: Assessment Summary Airway patent Yes 06/13/24 09:18 TAMPING MACHINE OPERATOR.MDOT Spontaneous unlabored Yes 06/13/24 09:18 TAMPING MACHINE OPERATOR.MDOT respirations Mental status Awake,Calm 06/13/24 09:18 TAMPING MACHINE OPERATOR.MDOT nausea No 06/13/24 09:18 TAMPING MACHINE OPERATOR.MDOT Vomiting No 06/13/24 09:18 TAMPING MACHINE OPERATOR.MDOT Anesthesia Postop Eval I: Fluid Summary Crystalloid volume administer 500 06/13/24 09:18 TAMPING MACHINE OPERATOR.MDOT (ml) Colloids volume administered ( ml) Blood Product volume administered (ml) Total IV fluid infused 500 06/13/24 09:18 TAMPING MACHINE OPERATOR.OT Anesthesia Postop Eval I: Summary Notes Anesthesia Complication No 06/13/24 09:18 TAMPING MACHINE OPERATOR.MDOT Anesthesia Complication Comment: Post-operative progress note Anesthesia: Postop Eval II Evaluation Mental status: Awake and Calm Pain Level: 0 nausea: No Vomiting: No Complications Anesthesia Complication: No
--- NOTE | 2024-06-13 09:23 | OP.EGD_ITS ---
Patient Name: Kenny Whitten Procedure Date: 06/13/2024 9:02 AM Date of : 1970 Age: 54 Procedure: Upper GI endoscopy Indications: For therapy of esophageal varices Providers: Duncan Colon DO Medicines: Monitored Anesthesia Care Patient Profile: This is a 54 year old male. Refer to note in patient chart for documentation of history and physical. Patient has symptoms of acute vomiting. Complications: No immediate complications. Procedure: Pre-Anesthesia Assessment: - Prior to the procedure, a History and Physical was performed, and patient medications and allergies were reviewed. The patient is competent. The risks and benefits of the procedure and the sedation options and risks were discussed with the patient. All questions were answered and informed consent was obtained. Patient identification and proposed procedure were verified by the physician in the pre-procedure area. Mental Status Examination: alert and oriented. Airway Examination: normal oropharyngeal airway and neck mobility. Respiratory Examination: clear to auscultation. CV Examination: normal. Prophylactic Antibiotics: The patient does not require prophylactic antibiotics. Prior Anticoagulants: The patient has taken no anticoagulant or antiplatelet agents except for NSAID medication. ASA Grade Assessment: II - A patient with mild systemic disease. After reviewing the risks and benefits, the patient was deemed in satisfactory condition to undergo the procedure. The anesthesia plan was to use monitored anesthesia care (MAC). Immediately prior to administration of medications, the patient was re-assessed for adequacy to receive sedatives. The heart rate, respiratory rate, oxygen saturations, blood pressure, adequacy of pulmonary ventilation, and response to care were monitored throughout the procedure. The physical status of the patient was re-assessed after the procedure. After obtaining informed consent, the endoscope was passed under direct vision. Throughout the procedure, the patient's blood pressure, pulse, and oxygen saturations were monitored continuously. The gastroscope was introduced through the mouth, and advanced to the second part of duodenum. The upper GI endoscopy was accomplished without difficulty. The patient tolerated the procedure well. Scope In: 9:08:23 AM Scope Out: 9:16:03 AM Total Procedure Duration Time 0 hours 7 minutes 40 seconds Findings: Grade II varices were found in the lower third of the esophagus. They were 6 mm in largest diameter. Three bands were successfully placed with complete eradication, resulting in deflation of varices. Mild portal hypertensive gastropathy was found in the entire examined stomach. No gross lesions were noted in the first portion of the duodenum. Impression: - Grade II esophageal varices. Completely eradicated. Banded. - Portal hypertensive gastropathy. - No gross lesions in the first portion of the duodenum. - No specimens collected. Recommendation: - Discharge patient to home. - Resume previous diet. - Continue present medications. Procedure Code(s): --- Professional --- 53054, Esophagogastroduodenoscopy, flexible, transoral; with band ligation of esophageal/gastric varices CPT copyright 2021 [employer]. All rights reserved. The codes documented in this report are preliminary and upon church administrator review may be revised to meet current compliance requirements. Duncan Colon DO 06/13/2024 9:22:27 AM This report has been signed electronically. Number of Addenda: 0 Note Initiated On: 06/13/2024 9:02 AM
--- NOTE | 2024-06-13 09:23 | OP.CCLET_ITS ---
06/13/2024 Earl Brandon [address] [place] [address] Re : Upper GI endoscopy procedure for Kenny Fish Dear Dr. Brandon This procedure was performed on May. My impressions and recommendations are as follows: Impressions : - Grade II esophageal varices. Completely eradicated. Banded. - Portal hypertensive gastropathy. - No gross lesions in the first portion of the duodenum. - No specimens collected. Recommendations : - Discharge patient to home. - Resume previous diet. - Continue present medications. My findings are described in the full procedure note, which is enclosed. If I can be of further assistance, please feel free to contact me at . Sincerely, Duncan Colon, 06/13/2024 9:22:27 AM This report has been signed electronically.
--- NOTE | 2024-06-13 13:12 | POSTOPAN2_ITS ---
Anesthesia Postop Eval I Sum Postop Eval Completion status Anesthesia document: Postop Eval 1 completed: Yes Anesthesia Postop Eval I Summary Anesthesia Postop Eval I Summary: Anesthesia Postop Eval I: Assessment Summary Airway patent Yes 06/13/24 09:18 CRIMPER [email or web address] Spontaneous unlabored Yes 06/13/24 09:18 CRIMPER OPERATOR.MDOT respirations Mental status Awake,Calm 06/13/24 09:18 CRIMPER OPERATOR.MDOT nausea No 06/13/24 09:18 CRIMPER OPERATOR.MDOT Vomiting No 06/13/24 09:18 CRIMPER OPERATOR.MDOT Anesthesia Postop Eval I: Fluid Summary Crystalloid volume administer 500 06/13/24 09:18 CRIMPER OPERATOR.MDOT (ml) Colloids volume administered ( ml) Blood Product volume administered (ml) Total IV fluid infused 500 06/13/24 09:18 CRIMPER OPERATOR.OT Anesthesia Postop Eval I: Summary Notes Anesthesia Complication No 06/13/24 09:18 CRIMPER OPERATOR.MDOT Anesthesia Complication Comment: Post-operative progress note Anesthesia: Postop Eval II Evaluation Mental status: Awake and Calm Pain Level: 0 nausea: No Vomiting: No Complications Anesthesia Complication: No
--- NOTE | 2024-06-13 13:12 | PCM.POSTANE2 ---
Anesthesia Postop Eval I Sum Postop Eval Completion status Anesthesia document: Postop Eval 1 completed: Yes Anesthesia Postop Eval I Summary Anesthesia Postop Eval I Summary: Anesthesia Postop Eval I: Assessment Summary Airway patent Yes 06/13/24 09:18 DENTAL MECHANIC.MDOT Spontaneous unlabored Yes 06/13/24 09:18 DENTAL MECHANIC.MDOT respirations Mental status Awake,Calm 06/13/24 09:18 DENTAL MECHANIC.MDOT nausea No 06/13/24 09:18 DENTAL MECHANIC.MDOT Vomiting No 06/13/24 09:18 DENTAL MECHANIC.MDOT Anesthesia Postop Eval I: Fluid Summary Crystalloid volume administer 500 06/13/24 09:18 DENTAL MECHANIC.MDOT (ml) Colloids volume administered ( ml) Blood Product volume administered (ml) Total IV fluid infused 500 06/13/24 09:18 DENTAL MECHANIC.OT Anesthesia Postop Eval I: Summary Notes Anesthesia Complication No 06/13/24 09:18 DENTAL MECHANIC.MDOT Anesthesia Complication Comment: Post-operative progress note Anesthesia: Postop Eval II Evaluation Mental status: Awake and Calm Pain Level: 0 nausea: No Vomiting: No Complications Anesthesia Complication: No
== END 2024-06-13 10:00 | disposition home or self-care (01) ==
LOC: EN 07:48 → AC 07:49
PROVIDERS: PCP Family Medicine; Referring Provider Family Medicine; Visit Provider Internal Medicine Gastroenterology
PROC: 0DJ08ZZ Inspection of Upper Intestinal Tract, Via Natural or Artificial Opening Endoscopic (ICD-10-PCS; CPT 43235; principal; 2024-06-13 08:55)
DX: I85.10 Secondary esophageal varices without bleeding (principal); K76.6 Portal hypertension; K70.30 Alcoholic cirrhosis of liver without ascites; E11.9 Type 2 diabetes mellitus without complications; Z79.85 Long-term (current) use of injectable non-insulin antidiabetic drugs; Z79.82 Long term (current) use of aspirin; Z79.899 Other long term (current) drug therapy; I10 Essential (primary) hypertension; Z87.19 Personal history of other diseases of the digestive system; F17.200 Nicotine dependence, unspecified, uncomplicated
CPT/HCPCS: 43244; 82962; J7120

== ENCOUNTER → 2024-11-12 | Outpatient (CLI) | payer OTHER, SELFPAY ==
[2024-11-12 12:10] LABS: Absolute Neutrophil Count 3.3 X10^3/uL (2.0-7.7); Basophil# 0.05 X10^3/uL; Basophil% 0.8 % (0-1); Eosinophil# 0.23 X10^3/uL; Eosinophils% 3.7 % (0-5); Hematocrit 42.5 % (40-54); Hemoglobin 14.4 g/dL (13.0-16.5); Lymphocyte % 34.2 % (19-41); Mean Corp Hgb Conc 33.9 g/dL (32-36); Mean Corpuscular Hgb 30.1 pg (27.0-32.0); Mean Corpuscular Volume 88.9 fL (80-94); Mean Platelet Vol. 10.5 fl (6.2-12.0); Monocyte# 0.45 X10^3/uL; Monocyte% 7.3 % (0-10); NRBC Flagged by Analyzer 0 % (0-5); Neutrophil % 53.8 % (47-70); Platelet Count 150 K/mm3 (150-450); RBC Distribution Width CV 12.4 % (11.6-14.6); RBC Distribution Width SD 40.7 fl (35.1-43.9); Red Blood Count 4.78 M/mm3 (4.6-6.2); White Blood Count 6.1 K/mm3 (4.4-11.0)
[2024-11-12 12:16] LABS: Microalbumin,Random Urine 24.9 mg/L (NO RANGE EST.); Microalbumin:Creatinine Ratio 62.6 mg/g CRE (<30 mg/g CRE)
[2024-11-12 12:29] LABS: Hemoglobin A1c 6.6 % (3.8-5.6)
[2024-11-12 12:38] LABS: ALB/GLOB Ratio 0.9 RATIO (0.9-2.4); AST(SGOT) 15 U/L (15-37); Alanine Aminotransfer ALT/SGPT 24 U/L (16-61); Albumin, Serum 3.9 g/dL (3.2-5.0); Alkaline Phosphatase 61 U/L (45-117); Anion Gap 7 (5-15); BUN 10 mg/dL (7-18); BUN/Creat Ratio 11.1 RATIO (10-20); Chloride 101 mmol/L (98-107); Cholesterol 129 mg/dL (200); EST Glomerular Filtration Rate 93 mL/min (>60); Est Glom Filt Rate - Afr Amer 112 mL/min (>60); Globulin 4.4 g/dL (2.2-4.2); Glucose 155 mg/dL (74-106); High Density Lipoprotein 46 mg/dL; PSA,Total - Annual Screen 0.53 ng/mL (0.00-4.00); Potassium 4.1 mmol/L (3.5-5.1); Protein, Total 8.3 g/dL (6.4-8.2); Sodium Level 135 mmol/L (136-145); Triglycerides 86 mg/dL; Very Low Density Lipoprotein 17 mg/dL (5-40)
== END | disposition home or self-care (01) ==
LOC: BFHLAB 08:40
PROVIDERS: PCP Family Medicine; Visit Provider Family Medicine
DX: Z00.00 Encounter for general adult medical examination without abnormal findings (principal); E11.9 Type 2 diabetes mellitus without complications; Z12.5 Encounter for screening for malignant neoplasm of prostate
CPT/HCPCS: 36415; 80053; 80061; 82043; 82570; 83036; 84153; 85025; G0103